=== PATIENT | male | born 1940 | race Caucasian/White ===

== ENCOUNTER 2019-08-26 22:39 | Emergency (ER) | payer OTHER ==
[~2019-08-26] VITALS: Ht 177.8 cm; Wt 81.6 kg
[~2019-08-26 22:39] MED LIST: AMIODARONE HCL200 MG PO; CARVEDILOL3.125 MG PO; ELIQUIS PO; ELOQUIS PO; FUROSEMIDE40 MG PO; LASIX20 MG PO
--- NOTE | 2019-08-26 23:05 | Emergency Department Note ---
History of Present Illnes History of Present Illness Chief Complaint: Eye, Ear, Nose, Throat, Dental History of Present Illness This is a 79 year old male with bleeding from R nare which started early this AM. Patient applied pressure to the area. Bleeding subsided prior to arrival. . 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 Any updates have been documented here. Past Medical History Recent Fever: No Clinical Suspicion of Infectio: No New/Unexplained Change in Ment: No Past Medical History: Hypertension Other Surgery: Squamos cell cancer Social History Smoking Cessation: Never Smoker Alcohol Use: None Any Illegal Drug Use: No Other Last Tetanus: UNKNOWN Review of Systems Review of Systems Constitutional: Reports no symptoms EENTM: Reports no symptoms Cardiovascular: Reports no symptoms Respiratory: Reports no symptoms Gastrointestinal: Reports no symptoms Genitourinary: Reports no symptoms Musculoskeletal: Reports no symptoms Integumentary: Reports no symptoms Neurological: Reports no symptoms Psychological: Reports no symptoms Endocrine: Reports no symptoms Hematological/Lymphatic: Reports easy bleeding Review of other systems All other systems reviewed and negative. Physical Exam Related Data Allergies: Coded Allergies: No Known Allergies (Unverified , 03/17/16) Physical Exam CONSTITUTIONAL Constitutional: Reports well-developed, Reports well-nourished HENT HENT: Reports normocephalic, Reports atraumatic, Reports oropharynx clear/moist , Reports nose normal, Reports other (dried heme in R nare . No active bleeding noted) HENT L/R: Reports left ext ear normal, Reports right ext ear normal EYES Eyes: Reports PERRL, Reports conjunctivae normal NECK Neck: Reports ROM normal PULMONARY Pulmonary: Reports effort normal, Reports breath sounds normal CARDIOVASCULAR Cardiovascular: Reports regular rhythm, Reports heart sounds normal, Reports capillary refill normal, Reports normal rate GASTROINTESTINAL Abdominal: Reports soft, Reports nontender, Reports bowel sounds normal GENITOURINARY Genitourinary: Reports exam deferred SKIN Skin: Reports warm, Reports dry MUSCULOSKELETAL Musculoskeletal: Reports ROM normal NEUROLOGICAL Neurological: Reports alert, Reports oriented x 3, Reports no gross motor or sensory deficits PSYCHOLOGICAL Psychological: Reports mood/affect normal, Reports judgement normal Procedures Epistaxis Control Nostril: right Nose prepped with: oxymetazoline Assessment & Plan Medical Decision Making MDM Patient presents with epistaxis of the R nare. hemostasis acheived prior to arrival. 1% Afrin spray applied to R nostril. Patient discharged to home to f/u with ENT as an outpatient. Assessment & Plan Final Impression: (1) Epistaxis Depart Disposition: HOME, SELF-[facility] living Meds Reported Medications Furosemide (LASIX) 20 Mg Tablet, 20 MG PO QD17, #30 TAB 03/17/16 Carvedilol (CARVEDILOL) 3.125 Mg Tablet, 6.25 MG PO BID, #60 TAB 03/17/16 [Eloquis] No Conflict Check, 5 MG PO BID 01/10/16 Furosemide (FUROSEMIDE) 40 Mg Tablet, 40 MG PO Daily, #30 TAB 01/10/16 Amiodarone Hcl (AMIODARONE HCL) 200 Mg Tablet, 200 MG PO DAILY 12/31/15 CARLOS PEREZ 10, 2020 23:05
[2019-08-26] MEDS ORDERED: OXYMETAZOLINE HCL 0.05% NAS 1 SPRAY BTL ONE (23:15)
[2019-08-27 00:22] VITALS: BP 116/92
== END 2019-08-27 00:26 | disposition home or self-care (01) ==
LOC: ER 22:39
DX: R04.0 Epistaxis (principal); I10 Essential (primary) hypertension; Z85.828 Personal history of other malignant neoplasm of skin
CPT/HCPCS: 99283

== ENCOUNTER 2019-09-01 04:02 | Emergency (ER) | payer OTHER ==
[~2019-09-01] VITALS: Ht 177.8 cm; Wt 77.1 kg
[2019-09-01] MEDS ORDERED: OXYMETAZOLINE HCL 0.05% NAS 1 SPRAY BTL ONE (04:30)
--- NOTE | 2019-09-01 04:40 | Emergency Department Note ---
History of Present Illnes History of Present Illness Chief Complaint: Eye, Ear, Nose, Throat, Dental History of Present Illness This is a 79 year old male nose bleeding that has been going on for since about 0200 this morning. Patient states this is about the 4th time he has bled intermittentl y. Patient bleeding from R nare at this time. Patient here recently for same problem and was told to follow up with EENT Dr. Brown. Patient has not followed up with Dr. Thompson. . Historian: Patient Arrival Mode: Car Onset (how long ago): hour(s) (2) Location: RIGHT NARE Quality: BLEEDING Radiation: Reports non-radiation Severity: mild Onset quality: sudden Duration (how long): hour(s) (2) Progression: waxing and waning Chronicity: recurrent Context: Denies recent illness, Denies recent surgery Relieving factors: none Exacerbating factors: none Associated symptoms: Reports denies other symptoms Past Medical/Family History Physician Review I have reviewed the patient's past medical and family history. Any updates have been documented here. Past Medical History Recent Fever: No Clinical Suspicion of Infectio: No New/Unexplained Change in Ment: No Past Medical History: Hypertension, COPD Other Medical History: SKIN CA Other Surgery: Squamos cell cancer Social History Smoking Cessation: Current every day smoker Counseling Performed: Yes Alcohol Use: None Any Illegal Drug Use: No TB Exposure/Symptoms: No Physically hurt or threatened: No Other Last Tetanus: UNKNOWN Any Pre-Existing Lines (PICC,: No Is patient up to date on immun: No Last Flu: NA Last Pneumovax: NA Review of Systems Review of Systems Constitutional: Reports no symptoms EENTM: Reports as per HPI Cardiovascular: Reports no symptoms Respiratory: Reports no symptoms Gastrointestinal: Reports no symptoms Genitourinary: Reports no symptoms Musculoskeletal: Reports no symptoms Integumentary: Reports no symptoms Neurological: Reports no symptoms Psychological: Reports no symptoms Endocrine: Reports no symptoms Hematological/Lymphatic: Reports no symptoms Physical Exam Related Data Allergies: Coded Allergies: No Known Allergies (Unverified , 03/17/16) Triage Vital Signs Vital Signs Date Time Temp Pulse Resp B/P (MAP) Pulse Ox O2 Delivery O2 Flow Rate FiO2 09/01/19 04:16 98.0 70 20 128/96 93 Vital signs reviewed: Yes Physical Exam CONSTITUTIONAL Constitutional: Present well-developed, Present well-nourished HENT HENT: Present normocephalic, Present atraumatic, Present oropharynx clear/moist, Present nose normal, Present other (MODERATE BLEEDING RIGHT ANTERIOR NARE, ) HENT L/R: Present left ext ear normal, Present right ext ear normal EYES Eyes: Reports PERRL, Reports conjunctivae normal NECK Neck: Present ROM normal PULMONARY Pulmonary: Present effort normal, Present breath sounds normal CARDIOVASCULAR Cardiovascular: Present regular rhythm, Present heart sounds normal, Present capillary refill normal, Present normal rate GASTROINTESTINAL Abdominal: Present soft, Present nontender, Present bowel sounds normal GENITOURINARY Genitourinary: Present exam deferred SKIN Skin: Present warm, Present dry MUSCULOSKELETAL Musculoskeletal: Present ROM normal NEUROLOGICAL Neurological: Present alert, Present oriented x 3, Present no gross motor or sensory deficits PSYCHOLOGICAL Psychological: Present mood/affect normal, Present judgement normal Procedures Epistaxis Control Nostril: right Direct inspection: anterior source identified Inspection method: otoscope Clots removed by: blowing nose Epistaxis treatment: inflatable pack Results of treatment: bleeding controlled Complications: none Assessment & Plan Medical Decision Making MDM Patient with intermittent epistaxis to right near for one week. Has not followed up with ENT. Clots were cleared by abrasion blow nose has anterior source of bleeding. Afrin nasal drops instilled pressure applied. Last Vital Signs Date Time Temp Pulse Resp B/P (MAP) Pulse Ox O2 Delivery O2 Flow Rate FiO2 09/01/19 04:16 98.0 70 20 128/96 93 Home Meds Reported Medications Furosemide (LASIX) 20 Mg Tablet, 20 MG PO QD17, #30 TAB 03/17/16 Carvedilol (CARVEDILOL) 3.125 Mg Tablet, 6.25 MG PO BID, #60 TAB 03/17/16 [Eloquis] No Conflict Check, 5 MG PO BID 01/10/16 Furosemide (FUROSEMIDE) 40 Mg Tablet, 40 MG PO Daily, #30 TAB 01/10/16 Amiodarone Hcl (AMIODARONE HCL) 200 Mg Tablet, 200 MG PO DAILY 12/31/15 Medications in the ED Oxymetazoline HCl ONCE ONCE NA Last administered on 09/01/19at 04:24; Admin Dose 2 SPRAY; Start 09/01/19 at 04:30; Stop 09/01/19 at 04:31; Status DC BREE MILES MD Sep 01, 2019 04:40
--- NOTE | 2019-09-01 05:13 | NUR ---
Krysten mckenzie placed by Dr. Rasmussen
== END 2019-09-01 06:02 | disposition home or self-care (01) ==
LOC: ER 04:02
DX: R04.0 Epistaxis (principal); I10 Essential (primary) hypertension; J44.9 Chronic obstructive pulmonary disease, unspecified; Z85.828 Personal history of other malignant neoplasm of skin; F17.210 Nicotine dependence, cigarettes, uncomplicated
CPT/HCPCS: 99282

== ENCOUNTER 2019-09-19 17:11 | Inpatient (IN) | payer OTHER ==
[~2019-09-19] VITALS: Ht 177.8 cm; Wt 76.8 kg
[2019-09-19] MEDS ORDERED: ALBUTEROL SULFATE HFA 8GM INHALATION AEROSOL INH PRN (17:45)
[2019-09-19] MEDS: CEFTRIAXONE SOD 1 GM/NS 50 ML 50 ML IV SCH (18:20)
--- NOTE | 2019-09-19 18:54 | Diagnostic Imaging Report ---
EXAMINATION: CHEST SINGLE (PORTABLE) INDICATION: ^Y ^COUGH, SOB, HYPOXIA ^[id number] ^[id number] COMPARISON: None FINDINGS: AP view TUBES and LINES: None. LUNGS: Lungs are well inflated. Diffuse bilateral lower lobe predominant reticular consolidations. PLEURA: No pleural effusion or pneumothorax. HEART AND MEDIASTINUM: The cardiac silhouette is mildly enlarged. BONES AND SOFT TISSUES: No acute osseous lesion. Soft tissues are unremarkable. UPPER ABDOMEN: No free air under the diaphragm. IMPRESSION: Radiographic findings consistent with pulmonary edema with or without superimposed viral pneumonia. Recommend follow-up chest radiograph after diuresis. Signed by: Dr. Priscilla Stern M.D. on 09/19/2019 6:50 PM
[2019-09-19 19:06] LABS: BASOPHILS % 0.4 % (0.0-1.0); EOSINOPHILS % 0.4 % (0.0-6.0); HEMATOCRIT 47.5 % (38.2-49.6); HEMOGLOBIN 14.9 g/dL (14.0-18.0); LYMPHOCYTES # (AUTO) 1.7 (1.0-3.2); LYMPHOCYTES % 16.8 % (18.0-39.1); MEAN CORPUSCULAR HEMOGLOBIN 29.3 pg (28-32); MEAN CORPUSCULAR HGB CONC 31.4 g/dL (31-35); MEAN CORPUSCULAR VOLUME 93.5 fL (81-99); MONOCYTES % 10.2 % (4.4-11.3); NEUTROPHILS # (AUTO) 7.1 (2.1-6.9); NEUTROPHILS % 71.8 % (38.7-80.0); PLATELET COUNT 235 x10e3/uL (140-360); RED BLOOD COUNT 5.08 x10e6/uL (4.3-5.7); RED CELL DISTRIBUTION WIDTH 16.5 % (11.7-14.4)
[2019-09-19 19:11] LABS: INR 1.81; PROTHROMBIN TIME 22.3 seconds (11.9-14.5)
[2019-09-19 19:12] LABS: PARTIAL THROMBOPLASTIN TIME 39.1 seconds (23.8-35.5)
[2019-09-19 19:18] LABS: ALANINE AMINOTRANSFERASE 23 IU/L (0-55); ALBUMIN 3.2 g/dL (3.5-5.0); ALBUMIN/GLOBULIN RATIO 1.1 (0.8-2.0); ALKALINE PHOSPHATASE 129 IU/L (40-150); ANION GAP 12.5 mmol/L (8-16); BLOOD UREA NITROGEN 23 mg/dL (7-26); BUN/CREATININE RATIO 21 (6-25); CALCIUM 8.8 mg/dL (8.4-10.2); CARBON DIOXIDE 27 mmol/L (22-29); CHLORIDE 105 mmol/L (98-107); CREATINE KINASE 40 IU/L (30-200); CREATININE, SERUM 1.11 mg/dL (0.72-1.25); EST GLOMERULAR FILTRATION RATE > 60 ML/MIN (60-); GLUCOSE 124 mg/dL (74-118); POTASSIUM 4.5 mmol/L (3.5-5.1); SODIUM 140 mmol/L (136-145)
--- NOTE | 2019-09-19 19:43 | Emergency Department Note ---
History of Present Illnes History of Present Illness Chief Complaint: Respiratory History of Present Illness This is a 79 year old male PATIENT IN FROM HOME WITH COMPLAINTS OF SHORTNESS OF BREATH X 5 DAYS; ALSO WITH COUGH. STATES THAT HE IS A CURRENT SMOKER, BUT THAT HE DOES NOT USE INHALERS OR NEBULIZERS OR HOME O2. PATIENT STATES HE HAS NOT BEEN ABLE TO SLEEP. O2 SATS 88% ON ROOM AIR, PLACED ON O2 2L/MIN NASAL CANNULA AND O2 SATS IMPROVED TO 92%. Historian: Patient Arrival Mode: Car Onset (how long ago): day(s) (5) Radiation: Reports non-radiation Severity: moderate Onset quality: gradual Timing of current episode: constant Progression: worsening Chronicity: new Context: Denies recent illness Relieving factors: none Exacerbating factors: none Associated symptoms: Reports cough, Reports shortness of breath, Reports other (ACHY ALL OVER) Treatments prior to arrival: none (NILESH CONWAY MD) Past Medical/Family History Physician Review I have reviewed the patient's past medical and family history. Any updates have been documented here. (NILESH CONWAY MD) Past Medical History Recent Fever: No Clinical Suspicion of Infectio: Yes New/Unexplained Change in Ment: No Past Medical History: Hypertension, Cancer Other Medical History: SKIN CA Other Surgery: Squamos cell cancer (NILESH CONWAY MD) Social History Physically hurt or threatened: No (NILESH CONWAY MD) Other Last Tetanus: UNKNOWN (NILESH CONWAY MD) Review of Systems Review of Systems Constitutional: Reports no symptoms EENTM: Reports no symptoms Cardiovascular: Reports no symptoms Respiratory: Reports as per HPI Gastrointestinal: Reports no symptoms Genitourinary: Reports no symptoms Musculoskeletal: Reports no symptoms Integumentary: Reports no symptoms Neurological: Reports no symptoms Psychological: Reports no symptoms Endocrine: Reports no symptoms Hematological/Lymphatic: Reports no symptoms (NILESH CONWAY MD) Physical Exam Related Data Allergies: Coded Allergies: No Known Allergies (Unverified , 03/17/16) Triage Vital Signs Vital Signs Date Time Temp Pulse Resp B/P (MAP) Pulse Ox O2 Delivery O2 Flow Rate FiO2 09/19/19 17:22 96.9 63 22 123/71 88 Room Air 09/19/19 17:30 2.0 Vital signs reviewed: Yes (NILESH CONWAY MD) Physical Exam CONSTITUTIONAL Constitutional: Present well-developed, Present well-nourished HENT HENT: Present normocephalic, Present atraumatic, Present oropharynx clear/moist, Present nose normal HENT L/R: Present left ext ear normal, Present right ext ear normal EYES Eyes: Reports PERRL, Reports conjunctivae normal NECK Neck: Present ROM normal PULMONARY Pulmonary: Present effort normal, Present respiratory distress (TACHYPNEA), Present other (DECR BS'S THROUGHOUT) CARDIOVASCULAR Cardiovascular: Present regular rhythm, Present heart sounds normal, Present capillary refill normal, Present normal rate GASTROINTESTINAL Abdominal: Present soft, Present nontender, Present bowel sounds normal GENITOURINARY Genitourinary: Present exam deferred SKIN Skin: Present warm, Present dry MUSCULOSKELETAL Musculoskeletal: Present ROM normal NEUROLOGICAL Neurological: Present alert, Present oriented x 3, Present no gross motor or sensory deficits PSYCHOLOGICAL Psychological: Present mood/affect normal, Present judgement normal (NILESH CONWAY MD) Results Laboratory Result Diagram: 09/19/19180909/19/19 1810 Laboratory Laboratory Tests Test 09/19/19 18:10 White Blood Count 9.82 x10e3/uL (4.8-10.8) Red Blood Count 5.08 x10e6/uL (4.3-5.7) Hemoglobin 14.9 g/dL (14.0-18.0) Hematocrit 47.5 % (38.2-49.6) Mean Corpuscular Volume 93.5 fL (81-99) Mean Corpuscular Hemoglobin 29.3 pg (28-32) Mean Corpuscular Hemoglobin Concent 31.4 g/dL (31-35) Red Cell Distribution Width 16.5 % (11.7-14.4) Platelet Count 235 x10e3/uL (140-360) Neutrophils (%) (Auto) 71.8 % (38.7-80.0) Lymphocytes (%) (Auto) 16.8 % (18.0-39.1) Monocytes (%) (Auto) 10.2 % (4.4-11.3) Eosinophils (%) (Auto) 0.4 % (0.0-6.0) Basophils (%) (Auto) 0.4 % (0.0-1.0) Neutrophils # (Auto) 7.1 (2.1-6.9) Lymphocytes # (Auto) 1.7 (1.0-3.2) Monocytes # (Auto) 1.0 (0.2-0.8) Eosinophils # (Auto) 0.0 (0.0-0.4) Basophils # (Auto) 0.0 (0.0-0.1) Absolute Immature Granulocyte (auto 0.04 x10e3/uL (0-0.1) Prothrombin Time 22.3 seconds (11.9-14.5) Prothromb Time International Ratio 1.81 Activated Partial Thromboplast Time 39.1 seconds (23.8-35.5) Sodium Level 140 mmol/L (136-145) Potassium Level 4.5 mmol/L (3.5-5.1) Chloride Level 105 mmol/L (98-107) Carbon Dioxide Level 27 mmol/L (22-29) Anion Gap 12.5 mmol/L (8-16) Blood Urea Nitrogen 23 mg/dL (7-26) Creatinine 1.11 mg/dL (0.72-1.25) Estimat Glomerular Filtration Rate > 60 ML/MIN (60-) BUN/Creatinine Ratio 21 (6-25) Glucose Level 124 mg/dL (74-118) Lactic Acid Level 1.3 mmol/L (0.5-2.0) Calcium Level 8.8 mg/dL (8.4-10.2) Total Bilirubin 1.2 mg/dL (0.2-1.2) Aspartate Amino Transf (AST/SGOT) 21 IU/L (5-34) Alanine Aminotransferase (ALT/SGPT) 23 IU/L (0-55) Alkaline Phosphatase 129 IU/L (40-150) Creatine Kinase 40 IU/L (30-200) Total Protein 6.1 g/dL (6.5-8.1) Albumin 3.2 g/dL (3.5-5.0) Globulin 2.9 g/dL (2.3-3.5) Albumin/Globulin Ratio 1.1 (0.8-2.0) Lab results reviewed: Yes (NILESH CONWAY MD) Imaging Imaging results reviewed: Yes Impressions EXAMINATION: CHEST SINGLE (PORTABLE) INDICATION: ^Y ^COUGH, SOB, HYPOXIA ^[id number] ^[id number] COMPARISON: None FINDINGS: AP view TUBES and LINES: None. LUNGS: Lungs are well inflated. Diffuse bilateral lower lobe predominant reticular consolidations. PLEURA: No pleural effusion or pneumothorax. HEART AND MEDIASTINUM: The cardiac silhouette is mildly enlarged. BONES AND SOFT TISSUES: No acute osseous lesion. Soft tissues are unremarkable. UPPER ABDOMEN: No free air under the diaphragm. IMPRESSION: Radiographic findings consistent with pulmonary edema with or without superimposed viral pneumonia. Recommend follow-up chest radiograph after diuresis. Signed by: Dr. Priscilla Stern M.D. on 09/19/2019 6:50 PM (NILESH CONWAY MD) Procedures 12 Lead ECG Interpretation ECG Interpretation : ECG: ECG 1 Electronics Research Engineer: Interpreted by ED physician Date: Sep 19, 2019 Time: 18:16 Rhythm: atrial fibrillation Rate: tachycardia (108) QRS axis: right Conduction: incomplete RBBB ST segments normal: Yes T waves normal: Yes Clinical Impression: abnormal ECG (NILESH CONWAY MD) Critical Care Time Total Critical Care Time (min): 45 Critical care time exclusive o: separately billable procedures Critcal care necessary due to: cardiac failure Subsequent provider Patient required pharmacological cardioversion in the setting of A. fib with RVR (BRANDON MONTALVO DO) Assessment & Plan Medical Decision Making MDM CBC, CHEM, CARDIACS, BNP, BLOOD CX'S, ECG, CXR, COVID - R/O STEMI/NSTEMI, CHF, COPD, PNEUMONIA, COVID (NILESH CONWAY MD) MDM Signout received, 79-year-old male arrives to the ED with cough shortness of breath, found to be in atrial fibrillation with rapid ventricular response. Patient required hospital admission for heart rate control and supplemental oxygen. (BRANDON MONTALVO DO) Reassessment Reassessment ADMIT, COVID SWAB PENDING (NILESH CONWAY MD) Assessment & Plan Final Impression: (1) Hypoxia (2) CHF (congestive heart failure) (NILESH CONWAY MD) Final Impression: (1) Hypoxia (2) CHF (congestive heart failure) (3) Atrial fibrillation with RVR (4) COVID-19 (BRANDON MONTALVO DO) Last Vital Signs Date Time Temp Pulse Resp B/P (MAP) Pulse Ox O2 Delivery O2 Flow Rate FiO2 09/19/19 17:31 88 24 93 09/19/19 17:30 2.0 09/19/19 17:22 96.9 Room Air (NILESH CONWAY MD) Home Meds Reported Medications Zinc Sulfate (ZINC SULFATE) 220 Mg Tablet, 220 MG PO DAILY, #60 CAP 09/23/19 Azithromycin (Z-NUBIA) 250 Mg Tablet, 250 MG PO DAILY for 7 Days, #1 UDPKT Z-Pack 09/23/19 Ascorbic Acid (VITAMIN C) 500 Mg Tablet, 500 MG PO BID, #60 09/23/19 [chertusin] No Conflict Check, 5 ML PO Q4HR PRN for COUGH 09/23/19 Dexamethasone (Decadron) 4 Mg Tablet, 4 MG PO DAILY, #7 09/23/19 Furosemide (LASIX) 20 Mg Tablet, 20 MG PO QD17, #30 TAB 03/17/16 Carvedilol (CARVEDILOL) 3.125 Mg Tablet, 6.25 MG PO BID, #60 TAB 03/17/16 [Eloquis] No Conflict Check, 5 MG PO BID 01/10/16 Furosemide (FUROSEMIDE) 40 Mg Tablet, 40 MG PO Daily, #30 TAB 01/10/16 Amiodarone Hcl (AMIODARONE HCL) 200 Mg Tablet, 200 MG PO DAILY 12/31/15 Medications in the ED Ceftriaxone Sodium 50 ml @ 100 mls/hr Q24H IV Last administered on 09/19/19at 18:20; Admin Dose 100 MLS/HR; Start 09/19/19 at 17:45; Stop 09/26/19 at 17:44 Azithromycin 250 ml @ 200 mls/hr DAILY IV ; Start 09/19/19 at 17:45; Stop 09/26/19 at 17:44 Albuterol 2 gm RQ2H PRN INH SHORTNESS OF BREATH; Start 09/19/19 at 17:45; Stop 10/19/19 at 17:44 (NILESH CONWAY MD) NILESH CONWAY MD Sep 19, 2019 19:43 BRANDON MONTALVO DO Sep 25, 2019 10:43
[2019-09-19 19:57] LABS: B-TYPE NATRIURETIC PEPTIDE2 346.5 pg/mL (0-100)
[2019-09-19] MEDS ORDERED: FUROSEMIDE INJ 10 MG/ML 4 ML VIAL IV ONE (22:00)
[2019-09-19] MEDS: AZITHROMYCIN 500MG/NS 250 ML 250 ML IV SCH (22:19)
[2019-09-20] MEDS ORDERED: FUROSEMIDE INJ 10 MG/ML 4 ML VIAL IV ONE (07:15)
--- NOTE | 2019-09-20 07:19 | NUR ---
CALLED LAB FOR UPDATE ON COVID SWAB, [facility] TEST[facility] WAS STOPPED AT 1400 YESTERDAY D/T HOLIDAY, BUT WILL BE LOADING RESULTS TODAY AND SHOULD BE BACK BY NOON.
--- NOTE | 2019-09-20 07:36 | NUR ---
PT GIVEN PHONE TO CALL , PT GIVEN BREAKFAST TRAY, PT UPDATED, PT BACK ON MONITORS AFTER BEING UPDATED BY [facility] AND GOING TO RESTROOM.
--- NOTE | 2019-09-20 08:04 | NUR ---
pt asked same questions as one hour ago. pt re educated on same information. states understanding at this time. pt awake, alert and is aaox4. pt slightly tachypnenic but denies distress, states "always sob." pt is current smoker.
--- NOTE | 2019-09-20 08:16 | NUR ---
AM LABS DRAWN AND SENT
[2019-09-20 08:55] LABS: BASOPHILS # (AUTO) 0.1 (0.0-0.1); BASOPHILS % 0.5 % (0.0-1.0); EOSINOPHILS % 0.4 % (0.0-6.0); HEMATOCRIT 47.9 % (38.2-49.6); HEMOGLOBIN 14.9 g/dL (14.0-18.0); LYMPHOCYTES # (AUTO) 2.1 (1.0-3.2); MEAN CORPUSCULAR HEMOGLOBIN 29.2 pg (28-32); MEAN CORPUSCULAR HGB CONC 31.1 g/dL (31-35); MEAN CORPUSCULAR VOLUME 93.9 fL (81-99); NEUTROPHILS # (AUTO) 6.8 (2.1-6.9); NEUTROPHILS % 67.7 % (38.7-80.0); PLATELET COUNT 243 x10e3/uL (140-360); RED CELL DISTRIBUTION WIDTH 16.6 % (11.7-14.4)
[2019-09-20 09:16] LABS: ALANINE AMINOTRANSFERASE 22 IU/L (0-55); ALBUMIN 3.3 g/dL (3.5-5.0); ALBUMIN/GLOBULIN RATIO 1.1 (0.8-2.0); ALKALINE PHOSPHATASE 126 IU/L (40-150); ANION GAP 12.3 mmol/L (8-16); BLOOD UREA NITROGEN 21 mg/dL (7-26); BUN/CREATININE RATIO 20 (6-25); CALCIUM 8.7 mg/dL (8.4-10.2); CARBON DIOXIDE 29 mmol/L (22-29); CHLORIDE 104 mmol/L (98-107); CREATINE KINASE 38 IU/L (30-200); CREATININE, SERUM 1.05 mg/dL (0.72-1.25); EST GLOMERULAR FILTRATION RATE > 60 ML/MIN (60-); GLUCOSE 110 mg/dL (74-118); POTASSIUM 4.3 mmol/L (3.5-5.1); SODIUM 141 mmol/L (136-145)
[2019-09-20] MEDS ORDERED: CARVEDILOL 12.5 MG TAB ONE (09:16)
[2019-09-20] MEDS ORDERED: AMIODARONE HCL 200 MG TAB ONE (09:16)
[2019-09-20] MEDS: CARVEDILOL 3.125 MG TAB PO SCH (09:26)
[2019-09-20] MEDS: AMIODARONE HCL 200 MG TAB PO SCH (09:26)
[2019-09-20] MEDS: APIXABAN 5 MG TABLET PO SCH ×2 (09:26→16:51)
[2019-09-20] MEDS: AZITHROMYCIN 500MG/NS 250 ML 250 ML IV SCH (09:26)
[2019-09-20] MEDS ORDERED: AMIODARONE HCL 200 MG TAB PO ONE (09:30)
[2019-09-20] MEDS ORDERED: SODIUM CHLORIDE 0.9% 250ML 250 ML ONE ×3 (11:02→16:48)
[2019-09-20] MEDS ORDERED: SODIUM CHLORIDE 0.9% 500ML 500 ML IV ONE (11:15)
[2019-09-20] MEDS ORDERED: VASOPRESSIN 60 UNIT in DEXTROSE 5% 50ML 60 ML IV STA (11:23)
--- NOTE | 2019-09-20 11:25 | Diagnostic Imaging Report ---
Examination: Single AP view of the chest. COMPARISON: Portable chest 09/19/2019 INDICATION: Shortness of breath, COVID IMPRESSION: Limited exam, as the costophrenic angles are not included in the image. 1. Lines and Tubes: None 2. Lungs are well-inflated. Patchy bibasilar predominantly interstitial opacities, which are essentially unchanged. No definite consolidation, however, exam is limited, as described above. 3. Stable enlarged cardiac silhouette. Pulmonary vasculature is normal. 4. No acute bony abnormalities. Signed by: Dr. Erasmo Fairchild M.D. on 09/20/2019 11:22 AM
--- NOTE | 2019-09-20 12:11 | NUR ---
pt placed on defib pads, 2nd monitor, increased o2 nc to 6 lpm, bilateral bp's modified fowlers, into gown, completely un-dressed with gown only incase central line placement needed stat, set up central line for md, informed md, watching pt one to one close obs.
--- NOTE | 2019-09-20 12:14 | NUR ---
remains in afib no ectopy
--- NOTE | 2019-09-20 12:19 | NUR ---
Note xin in ED - 09/20/19 at 1318 by MIKAYLA spoke with pt again. pt states living with son (pt is [place]) and pt states her oxygen is where she is going home to stay with son. pt insist she does have home oxygen.
--- NOTE | 2019-09-20 13:19 | NUR ---
CALLED LAB AGAIN, NOW THEY STATES SWAB WILL BE ANOTHER 24 HRS BEFORE BEING READY. SPOKE WITH [facility] BED AVAILABLE FOR ADMISSION.
[2019-09-20 16:09] VITALS: BP 121/79
[2019-09-20] MEDS: CEFTRIAXONE SOD 1 GM/NS 50 ML 50 ML IV SCH (16:51)
[2019-09-20] MEDS ORDERED: ZOLPIDEM TARTRATE 5 MG TAB PO PRN (17:00)
[2019-09-20] MEDS ORDERED: FUROSEMIDE INJ 10 MG/ML 4 ML VIAL IV SCH (17:00)
--- NOTE | 2019-09-20 17:00 | NUR ---
Received report on patient from ER at 1331 from [facility]. Patient arrived from ER at 1600. Patient is A0x3. Patient was connected to 3L o2. Patient ambulatory and able to give history and participate in assessment. Patient has 2 patent 20g IVs (Left AC and Right hand). Patient oriented to room, procedures, what to expect. Patient had no other questions or complaints.
--- NOTE | 2019-09-20 19:43 | NUR ---
Resumed care of patient. Patient awake and sitting up on side of bed, 2L O2 NC in place, no s/s of distress at this time. All safety measures in place. Will continue to monitor.
[2019-09-20 20:00] VITALS: BP 110/72
[2019-09-20 21:10] VITALS: BP 110/72
--- NOTE | 2019-09-20 21:42 | Consultation ---
DATE OF CONSULTATION: REASON FOR CONSULTATION: Hypoxemia, concerned about COVID. HISTORY OF PRESENT ILLNESS: This patient, who is a very pleasant 79-year-old white male with history of congestive heart failure, comes in from home with one-day history of shortness of breath, started last 5 days, getting progressively worse the last day. He came to the emergency room when he was hypoxemic. The patient was on oxygen. He was on 2 L, went up to 4 L, but he is currently doing very well and has no complaints. He denies any fever, chills, or cough, but he has shortness of breath. The patient was currently seen in the emergency room. LABORATORY DATA: All his lab reviewed, discussed with the ER physician at present time. His blood cultures still pending. His white count is 10.07, hemoglobin 14.9, hematocrit 47. His COVID-19 still pending. His sodium 140, potassium 4.5 with a creatinine of 1.11. Liver enzyme within normal limits. IMAGING: A chest x-ray was done. It shows patchy bibasilar predominant interstitial opacities. No definite consolidation. PHYSICAL EXAMINATION: GENERAL: Currently alert, oriented. Does not seem to be in acute distress. VITAL SIGNS: Stable. Currently afebrile. No fever since admission. Temperature 98.6. HEENT: He is not icteric. NECK: Supple. CHEST: Few crackles bilaterally. HEART: S1, S2. No S3, S4, or murmur. ABDOMEN: Soft. Bowel sounds present. No tenderness. EXTREMITIES: No edema. SKIN: There is no rash. IMPRESSION: Respiratory failure, concerned acute congestive heart failure, the possibility of superimposed viral bacterial pneumonia could not be ruled out, since we are in mid of COVID-19, continue with oxygen. We will continue on droplet precautions until we get the COVID-19 PCR. The patient is telling me he is already feeling better. He is on Eliquis, apixaban 5 mg p.o. b.i.d. He is on Coreg and amiodarone. Concerned about superimposed community-acquired pneumonia. He was on Rocephin, azithromycin. He is doing well with three days of azithromycin and 5 days of Rocephin. Continue with oxygenation as noted. PAST MEDICAL HISTORY: Congestive heart failure. PAST SURGICAL HISTORY: He denies. ALLERGIES: NKA. SOCIAL HISTORY: There is no smoking, drug abuse, or alcohol abuse. FAMILY HISTORY: Otherwise unremarkable. REVIEW OF SYSTEMS: At the present time besides as mentioned above, all negative. The course of during his hospitalization so far although reviewed. MD MILVIA Chamorro/ASHIA /[id number]
--- NOTE | 2019-09-20 23:28 | Consultation ---
DATE OF CONSULTATION: Pulmonary and Critical Care Consultation CHIEF COMPLAINT: Dyspnea. HISTORY OF PRESENT ILLNESS: The patient is an 79-year-old man. He has a history of prior smoking and some COPD, although he does not use inhalers or oxygen at home. He also has a history of atrial fibrillation and chronic diastolic heart failure. He has some baseline dyspnea on exertion, but his dyspnea has been worse over the past week. He went to the emergency department several days ago and received some azithromycin. He noted minimal improvement. States he still has some phlegm production. He does not complain of fevers or chest pain. PAST MEDICAL HISTORY: 1. Atrial fibrillation. 2. Intermittent heart failure. 3. COPD. ALLERGIES: NO KNOWN DRUG ALLERGIES. PAST SURGICAL HISTORY: Noncontributory. FAMILY HISTORY: Noncontributory. REVIEW OF SYSTEMS: The patient has no headache. He is not complaining of fevers. He has no neck pain. He denies chest pain. He does note worsening dyspnea. He has some cough and phlegm production. He has no abdominal pain. He has no nausea or vomiting. He has no leg edema. PHYSICAL EXAMINATION: VITAL SIGNS: The blood pressure is 121/79, heart rate is 101. The patient is afebrile. Saturating 97% on 3 L. HEENT: Shows no facial swelling or erythema. CARDIAC: Reveals regular rate and rhythm with normal S1 and S2. LUNGS: Auscultation of lungs reveals clear breath sounds bilaterally. There is no wheezing. ABDOMEN: Soft, nontender. There is no rebound or guarding. There is no leg edema or calf tenderness. NEUROLOGIC: Shows no abnormalities. LABORATORY DATA: White blood cell count is 10, hemoglobin is 14.9. The platelet count is 243. BUN to creatinine ratio is 21 to 1.07. Electrolytes are within normal limits. The BNP is 255.9. Total bilirubin is 1.4. Albumin is 3.4. RADIOGRAPHIC DATA: Chest x-ray shows patchy bibasilar opacities. IMPRESSION: 1. Qoync-vk-lbwghsy diastolic heart failure. 2. Paroxysmal atrial fibrillation. 3. Chronic obstructive pulmonary disease. 4. Possible viral pneumonia and coronavirus disease-2019. PLAN: 1. Continue azithromycin and Rocephin. 2. Albuterol inhaler as needed. 3. Continue amiodarone along with Eliquis and Coreg. 4. Low-dose Lasix. MD THAO Cruz /[id number]
[2019-09-21] VITALS (8 sets, daily range): BP systolic 91–124; BP diastolic 71–86
[2019-09-21 04:22] LABS: BASOPHILS % 0.4 % (0.0-1.0); EOSINOPHILS # (AUTO) 0.1 (0.0-0.4); EOSINOPHILS % 0.6 % (0.0-6.0); HEMATOCRIT 46.6 % (38.2-49.6); HEMOGLOBIN 14.6 g/dL (14.0-18.0); LYMPHOCYTES # (AUTO) 2.1 (1.0-3.2); LYMPHOCYTES % 21.4 % (18.0-39.1); MEAN CORPUSCULAR HEMOGLOBIN 29.6 pg (28-32); MEAN CORPUSCULAR HGB CONC 31.3 g/dL (31-35); MEAN CORPUSCULAR VOLUME 94.5 fL (81-99); MONOCYTES # (AUTO) 1.2 (0.2-0.8); MONOCYTES % 12.4 % (4.4-11.3); NEUTROPHILS # (AUTO) 6.3 (2.1-6.9); NEUTROPHILS % 64.8 % (38.7-80.0); PLATELET COUNT 200 x10e3/uL (140-360); RED BLOOD COUNT 4.93 x10e6/uL (4.3-5.7); RED CELL DISTRIBUTION WIDTH 16.3 % (11.7-14.4)
[2019-09-21 04:34] LABS: ALANINE AMINOTRANSFERASE 27 IU/L (0-55); ALBUMIN 3.1 g/dL (3.5-5.0); ALBUMIN/GLOBULIN RATIO 1.2 (0.8-2.0); ALKALINE PHOSPHATASE 117 IU/L (40-150); ANION GAP 12.3 mmol/L (8-16); BLOOD UREA NITROGEN 27 mg/dL (7-26); BUN/CREATININE RATIO 28 (6-25); CALCIUM 8.1 mg/dL (8.4-10.2); CARBON DIOXIDE 24 mmol/L (22-29); CHLORIDE 107 mmol/L (98-107); CREATININE, SERUM 0.97 mg/dL (0.72-1.25); EST GLOMERULAR FILTRATION RATE > 60 ML/MIN (60-); GLUCOSE 93 mg/dL (74-118); POTASSIUM 4.3 mmol/L (3.5-5.1); SODIUM 139 mmol/L (136-145)
--- NOTE | 2019-09-21 06:19 | NUR ---
Patient resting quietly in bed, respirations even and unlabored, 2L O2 NC in place, vital signs stable, no s/s of distress at this time. All safety measures in place.
[2019-09-21] MEDS: CARVEDILOL 3.125 MG TAB PO SCH ×2 (08:00→17:51)
[2019-09-21] MEDS ORDERED: ALBUTEROL SULFATE HFA 8GM INHALATION AEROSOL INH PRN (08:30)
--- NOTE | 2019-09-21 08:37 | Diagnostic Imaging Report ---
EXAMINATION: CHEST SINGLE (PORTABLE) INDICATION: Shortness of breath COMPARISON: Chest radiograph 09/20/2019 FINDINGS: LINES/TUBES:EKG leads overlie the chest. LUNGS:The lungs are mildly hyperinflated. Mildly increasing bibasilar hazy opacities. PLEURA:No pleural effusion or pneumothorax. MEDIASTINUM:Cardiomediastinal silhouette is stably enlarged. BONES/SOFT TISSUES:No acute osseous injury. ABDOMEN:No free air under the diaphragm. IMPRESSION: Mildly increasing bibasilar hazy opacities may represent pneumonia in the proper clinical setting. Signed by: Jacqueline Eastman MD on 09/21/2019 8:34 AM
[2019-09-21] MEDS ORDERED: DEXAMETHASONE SOD PHOS INJ 4 MG/ML VIAL IV SCH (09:00)
--- NOTE | 2019-09-21 09:00 | NUR ---
pt does not use oxygen at home. pt resting o2 at 2L- 91%. pt ambulating on room air- 85% pt recover on 2L- 90% then 95% after 5 min
--- NOTE | 2019-09-21 09:24 | History and Physical ---
PRIMARY CARE PHYSICIAN: Dr. Jordin Tucker. CONSULTANTS: 1. Dr. Candice Zaman. 2. Dr. Vito Marsh. CHIEF COMPLAINT: Increasing shortness of breath, cough. HISTORY OF PRESENT ILLNESS: The patient is an 79-year-old male with multiple chronic medical problems including COPD, diastolic dysfunction, and heart failure. The patient has also atrial fibrillation and amiodarone, on anticoagulant therapy. The patient came in with increasing shortness of breath first with exertion and then subsequently at rest. The patient came to the emergency room several days ago and he received azithromycin and subsequently went home. He has some improvement, but then worsened. The patient now came in with increasing shortness of breath. He was having difficulty breathing and chest x-ray showed bibasilar opacity consistent with most likely viral infection. The patient's COVID-19 PCR is still pending. PAST MEDICAL HISTORY: Atrial fibrillation, diastolic heart failure, and COPD. PAST SURGICAL HISTORY: Noncontributory. SOCIAL HISTORY: The patient does not smoke or use alcohol. No regular drug. ALLERGIES: NO KNOWN ALLERGIES. HOME MEDICATIONS: The patient is on amiodarone, Coreg, Lasix, and Eliquis. PHYSICAL EXAMINATION: VITAL SIGNS: Temperature is 97, blood pressure 123/71, pulse rate 63, and respirations 22. GENERAL: The patient is not in acute distress. He is awake. HEENT: Normocephalic and atraumatic. Pupils reactive. Anicteric. NECK: Supple grossly. PULMONARY: Diminished breath sounds bilaterally, coarses at the bases. CARDIOVASCULAR: Atrial fibrillation, increasing heart rate. ABDOMEN: Soft, nontender, non-distention. EXTREMITIES: No gross cyanosis or edema. NEUROLOGIC: No focal deficit. LABORATORY DATA: Serology PCR for COVID-19 pending. Chemistry; sodium 139, potassium 4.3, chloride 107, bicarb 24, BUN is 27, creatinine 0.9, and glucose is 93. WBC is 9.7, hemoglobin 14.6, hematocrit 46.6, and platelets of 200. Coagulation; INR is 1.8. Chest x-ray show lungs well inflated with patchy bibasilar predominant interstitial opacity. IMPRESSION: 1. Possible COVID-19, rule out pneumonitis/pneumonia. Bibasilar opacity. 2. Atrial fibrillation with rapid rate episodically. 3. Xzaay-ko-kffpslm diastolic dysfunction, congestive heart failure. 4. Acute respiratory insufficiency. PLAN: Oxygen support. Resume home medication and control heart rate. Antibiotics. COVID-19 protocol. Since the patient had increase in respiratory problem started few days ago now, the patient may benefit Decadron. We will start the patient on medication. Consult Dr. Vito Marsh, who saw the patient already. Consult Dr. Zaman. We will monitor the patient closely at this time. MD SAULO Wright/VAHIDL /[id number]
[2019-09-21] MEDS: AZITHROMYCIN 500MG/NS 250 ML 250 ML IV SCH (10:17)
[2019-09-21] MEDS: APIXABAN 5 MG TABLET PO SCH ×2 (10:17→17:52)
[2019-09-21] MEDS: AMIODARONE HCL 200 MG TAB PO SCH (10:17)
[2019-09-21] MEDS: ASCORBIC ACID 500 MG TAB PO SCH ×2 (11:22→17:52)
[2019-09-21] MEDS: DEXAMETHASONE PHOS 4MG/ML 5ML MULTIDOSE VIAL IV SCH (11:22)
[2019-09-21] MEDS: ZINC SULFATE 220 MG CAP PO SCH (11:22)
[2019-09-21] MEDS: MAGNESIUM OXIDE 400 MG TAB PO SCH ×2 (11:22→17:52)
--- NOTE | 2019-09-21 11:31 | Progress Note ---
DATE: SUBJECTIVE: The patient reports less dyspnea. He is not complaining of cough or chest pain. PHYSICAL EXAMINATION: VITAL SIGNS: The blood pressure is 106/80, saturation is 95% on 2 L and the pulse is 90. HEENT: Shows no facial swelling or erythema. CARDIAC: Reveals regular rate and rhythm with normal S1 and S2. LUNGS: Auscultation of lungs reveals decreased breath sounds at the bases. There is no wheezing. ABDOMEN: Soft and nontender. There is no rebound or guarding. EXTREMITIES: Shows no leg edema or calf tenderness. There is no cyanosis or clubbing. SKIN: Shows no rashes. NEUROLOGICAL: Shows no focal abnormalities. LABORATORY DATA: White blood cell count is 9.7, hemoglobin is 14.6, and platelet count is 200. BUN to creatinine ratio is normal. Other electrolytes are within normal limits. Albumin is 3.1. RADIOGRAPHIC DATA: Chest x-ray shows bilateral infiltrates. IMPRESSION: 1. Probable viral pneumonia and COVID-19 infection. 2. Paroxysmal atrial fibrillation. 3. Chronic diastolic heart failure. 4. Chronic obstructive pulmonary disease. PLAN: 1. Complete echocardiogram and Cardiology evaluation. 2. Continue current antibiotics. 3. Wean oxygen. 4. Bronchodilators as needed. Vito Marsh MD [facility]/VAHIDL /[id number]
--- NOTE | 2019-09-21 11:40 | NUR ---
nurse called to patient's room. pt sitting in chair on 4L nc very short of breath patient stating he cannot breathe. assessed tele monitor. patient hr 134 o2 sat 88%. patient placed on nonrebreather mask and rapid response called.
--- NOTE | 2019-09-21 13:33 | NUR ---
CALL TO SERGE LEWIS TO ASSESS IF HOME O2 ORDER NEEDED. STATES SHE WANTED TO ASSESS THE PT FIRST. AND SHE WOULD CALL DR. PEREZ FOR ORDER. CM WILL AWAIT ORDER OR CALL BACK.
--- NOTE | 2019-09-21 14:00 | NUR ---
patient doing much better this afternoon. notified Dr. Ortiz of hypotension and heart rate. order for CT entered. still pending covid results.
--- NOTE | 2019-09-21 16:52 | Diagnostic Imaging Report ---
EXAM: CT Chest WITHOUT intravenous contrast 09/21/2019 3:27 PM INDICATION: Shortness of breath COMPARISON: Chest radiograph 09/21/2019 TECHNIQUE: Chest was scanned utilizing a multidetector helical scanner from the lung apex through the level of the adrenal glands without administration of IV contrast. Coronal and sagittal reformations were obtained. Routine protocol was performed. IV CONTRAST: None RADIATION DOSE: Total DLP: 479 mGy*cm. Dose modulation, iterative reconstruction, and/or weight based adjustment of the mA/kV was utilized to reduce the radiation dose to as low as reasonably achievable. COMPLICATIONS: None FINDINGS: LINES/ TUBES: None. LUNGS AND AIRWAYS: There is mucus/debris in the distal trachea and in the right bronchus intermedius and its major branches. Increased AP diameter of the chest. Severe diffuse centrilobular and paraseptal emphysema. Diffuse bronchial wall thickening. Increased bilateral lower lobe predominant groundglass opacities and predominantly peripheral reticular opacities consistent with component of chronic pulmonary fibrosis. 2.9 x 2.6 cm spiculated posterior left lower lobe pulmonary nodule. PLEURA: The pleural spaces are clear. HEART AND MEDIASTINUM: The thyroid gland is normal. No supraclavicular or axillary lymphadenopathy. Numerous enlarged mediastinal lymph nodes, for example a pretracheal node which measures up to 2.7 x 2.3 cm (axial image 50) and a subcarinal node measuring up to 3.6 x 2.9 cm (axial image 66). Left hilar lymphadenopathy measures up to 2.1 x 1.5cm. Mild multichamber cardiomegaly. Small pericardial effusion. Scattered atherosclerotic calcifications involve the aorta, coronary arteries, and proximal great vessels. UPPER ABDOMEN: No acute findings in the upper abdomen. BONES: No acute osseous injury. SOFT TISSUES: Unremarkable. IMPRESSION: 2.9 x 2.6 cm spiculated left lower lobe pulmonary nodule is highly concerning for malignancy. Mediastinal and left hilar lymphadenopathy concerning for metastatic disease. Severe diffuse centrilobular and paraseptal emphysema. Findings of chronic pulmonary fibrosis. Mucous/debris in the distal trachea and right bronchus intermedius may be related to aspiration. Signed by: Jacqueline Eastman MD on 09/21/2019 4:49 PM
--- NOTE | 2019-09-21 17:07 | Progress Note ---
DATE: SUBJECTIVE: Mr. Campos had arrhythmia today. The patient currently alert and comfortable. He is not short of breath. OBJECTIVE: GENERAL: He is currently alert and oriented. VITAL SIGNS: Currently, afebrile. HEENT: He is not icteric. NECK: Supple. CHEST: Clear. ABDOMEN: Soft. Bowel sounds present. No tenderness. EXTREMITIES: No edema. LABORATORY DATA: His blood culture is still pending. His white count 9.72, and hemoglobin 14. IMPRESSION: 1. Shortness of breath, concerned about COVID-19. Continue as ordered. 2. Arrhythmia and congestive heart failure. Cardiology evaluation. 3. Chronic obstructive pulmonary disease, on oxygen. PLAN: Currently, on dexamethasone, magnesium oxide, zinc, Eliquis, azithromycin, Rocephin, and carvedilol. We will continue to follow and reassess on daily basis. Discussed with the Medical team. MD MILVIA Chamorro/ASHIA /[id number]
[2019-09-21] MEDS: CEFTRIAXONE SOD 1 GM/NS 50 ML 50 ML IV SCH (17:52)
--- NOTE | 2019-09-21 21:10 | NUR ---
Received pt in bed awake a/o x3 no s/sx of acute distress noted, denies pain or discomfort. States has a cough with no phlegm noted. Pt up to bathroom with O2sats decreasing, encouraged to call for assistance or use bedside urinal as able. Personal items within reach, bed in low and locked position, call barton at bedside. Will cont to mon.
[2019-09-22] VITALS (7 sets, daily range): BP systolic 80–116; BP diastolic 68–91
[2019-09-22] MEDS: ZINC SULFATE 220 MG CAP PO SCH (09:00)
[2019-09-22] MEDS: APIXABAN 5 MG TABLET PO SCH ×2 (09:39→16:30)
[2019-09-22] MEDS: MAGNESIUM OXIDE 400 MG TAB PO SCH ×2 (09:39→16:30)
[2019-09-22] MEDS: AMIODARONE HCL 200 MG TAB PO SCH (09:39)
[2019-09-22] MEDS: AZITHROMYCIN 500MG/NS 250 ML 250 ML IV SCH (09:39)
[2019-09-22] MEDS: CARVEDILOL 3.125 MG TAB PO SCH ×2 (09:39→16:24)
[2019-09-22] MEDS: ASCORBIC ACID 500 MG TAB PO SCH ×2 (09:39→16:30)
[2019-09-22] MEDS: DEXAMETHASONE PHOS 4MG/ML 5ML MULTIDOSE VIAL IV SCH (09:39)
--- NOTE | 2019-09-22 13:11 | Progress Note ---
DATE: Pulmonary Critical Care Progress Note SUBJECTIVE: CT scan shows possible right lower lobe mass measuring 2 x 3 cm. There is some associated mediastinal adenopathy. He also has emphysema. PHYSICAL EXAMINATION: VITAL SIGNS: The patient is afebrile. The blood pressure is 170/71, saturation is 97% on 4 L. HEENT: Shows no facial swelling or erythema. CARDIAC: Reveals regular rate and rhythm with normal S1 and S2. LUNGS: Auscultation of lungs shows clear breath sounds bilaterally. There is no wheezing. ABDOMEN: Soft and nontender. There is no rebound or guarding. EXTREMITIES: Shows no leg edema or calf tenderness. There is no cyanosis or clubbing. SKIN: Shows no rashes. NEUROLOGICAL: Shows no focal abnormalities. LABORATORY DATA: White blood cell count is 9.7, hemoglobin is 14.6. The platelet count is 200. The BUN to creatinine ratio is 27 to 0.97. The other electrolytes are within normal limits. RADIOGRAPHIC DATA: CT scan of the chest shows 2.9 x 2.6 cm spiculated left lower lobe pulmonary nodule. There is also some associated mediastinal adenopathy. IMPRESSION: 1. Left lower lobe mass, suggestive of possible bronchogenic carcinoma. 2. Probable viral pneumonia and COVID-19 infection. 3. Paroxysmal atrial fibrillation. 4. Chronic obstructive pulmonary disease. 5. Chronic diastolic heart failure. PLAN: 1. The patient understands the possibility of malignancy. He is interested in pursuing a biopsy, but wants to do so as an outpatient through his regular physician. 2. Continue oxygen and evaluate for home oxygen. 3. Complete current antibiotics. 4. Bronchodilators. Vito Marsh MD [facility]/MODL /[id number]
[2019-09-22] MEDS: CEFTRIAXONE SOD 1 GM/NS 50 ML 50 ML IV SCH (16:30)
[2019-09-22] MEDS ORDERED: GUAIFENESIN 200 MG/10 ML UDC PO PRN (22:30)
[2019-09-23] VITALS: BP 103/80
[2019-09-23 01:24] VITALS: BP 106/76
[2019-09-23 04:00] VITALS: BP 109/73
--- NOTE | 2019-09-23 04:24 | NUR ---
Pt request sleeping pill aprox 0100 Med per MAY, pt found to be confused but easily redirected. Took tele monitor off and lost dentures in bed. Pt also removed O2nc. Items replaced to pt and tele monitor removed again. Bed alarm set on bed for patient safety, instructed pt to call for assistance if need to get oob. Pt apologize for conrfusion. Reassured pt his safety is of concern and his care. Pt attempt to get oob and to bathroom, assisted by staff without dif. Assisted back to bed, alarm on, bed in low position, call barton and personal items within reach will closely mon patient.
[2019-09-23 08:42] VITALS: BP 108/81
[2019-09-23] MEDS: CARVEDILOL 3.125 MG TAB PO SCH (09:04)
[2019-09-23] MEDS: AZITHROMYCIN 500MG/NS 250 ML 250 ML IV SCH (09:04)
[2019-09-23] MEDS: AMIODARONE HCL 200 MG TAB PO SCH (09:04)
[2019-09-23] MEDS: MAGNESIUM OXIDE 400 MG TAB PO SCH (09:04)
[2019-09-23] MEDS: DEXAMETHASONE PHOS 4MG/ML 5ML MULTIDOSE VIAL IV SCH (09:04)
[2019-09-23] MEDS: ASCORBIC ACID 500 MG TAB PO SCH (09:04)
[2019-09-23] MEDS: APIXABAN 5 MG TABLET PO SCH (09:04)
--- NOTE | 2019-09-23 09:50 | NUR ---
SPO2 on Room air 86%. Placed patient on NC 3L and exerted patient. SPO2 94% upon exertion with O2 3L NC.
[2019-09-23 09:54] VITALS: BP 108/81
[2019-09-23] MEDS ORDERED: DECADRON4 M1 PO (10:39)
[2019-09-23] MEDS ORDERED: [UNRECOGNIZED DRUG - OTHER] PO (10:41)
[2019-09-23] MEDS ORDERED: AZITHROMYCIN250 MG PO (10:42)
[2019-09-23] MEDS ORDERED: VITAMIN C500 M1 PO (10:42)
[2019-09-23] MEDS ORDERED: ZINC SULFATE220 MG PO (10:42)
[2019-09-23] MEDS: ZINC SULFATE 220 MG CAP PO SCH (11:30)
--- NOTE | 2019-09-23 11:30 | NUR ---
CALL TO PT @ [phone]. PT'S ; BOB STORM ANSWERED. STATES THIS WAS THEIR HOME #. STATES SHE WOULD BE CARING FOR THE PT AT HOME. STATES HE CAN MAKE HIS OWN DECISIONS. INFORMED I WILL CALL PT AFTER OUR CALL. SHE WILL CALL ALSO. DISCUSSED HOME O2. PROVIDED CHOICE. CHOSE [facility] @ [facility]: [phone] / FAX: [phone]. REFERRAL WAS FAXED TO [facility]. TOMMY NEWMAN/ NOTIFIED. TANK WAS TAKEN TO THE UNIT FOR DC HOME. INSTRUCTED RAYMOND TO INFORM PT I SPOKE W HIS AND HE WOULD NEED TO CALL THE # ON THE TANK AT [place]. WAS ALSO INSTRUCTED TO CALL AT DISCHARGE.
[2019-09-23 12:25] VITALS: BP 101/61
--- NOTE | 2019-09-23 12:26 | Progress Note ---
DATE: SUBJECTIVE: The patient has no new complaints. He did have some tachycardia this morning. He is saturating well on oxygen. PHYSICAL EXAMINATION: VITAL SIGNS: The patient is afebrile. The vital signs are stable. Saturating 99% on 4 L. His heart rate has fluctuated between 96 and 134. HEENT: Shows no facial swelling or erythema. CARDIAC: Reveals irregularly irregular rhythm with normal S1 and S2. LUNGS: Auscultation of lungs reveals crackles at the bases. There is no wheezing. ABDOMEN: Soft and nontender. There is no rebound or guarding. EXTREMITIES: Shows no leg edema or calf tenderness. There is no cyanosis or clubbing. SKIN: Shows no rashes. IMPRESSION: 1. 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 2. Paroxysmal atrial fibrillation. 3. Viral pneumonia and COVID-19 infection. 4. Chronic diastolic heart failure. 5. Chronic obstructive pulmonary disease. PLAN: 1. The patient wants to go home. He will pursue a CT-guided biopsy as an outpatient through his regular physician at [facility]. 2. Continue oxygen at home. 3. Complete antibiotics. 4. Continue current cardiac regimen. 5. Okay with Cardiology prior to discharge. MD MARA Cruz/ASHIA /[id number]
--- NOTE | 2019-09-23 13:18 | NUR ---
L AC and right hand IV discontinued. No signs of infiltration noted. 2x2 gauze and tape placed. Taken via wheelchair to personal car by PCT Ilsa. AAOX3 to time, person, place. Respirations even and unlabored. O2 personal tank 3L NC. Discharge instructions, rx, and all personal belongings taken with patient.
[2019-09-24] MEDS ORDERED: AZITHROMYCIN 250 MG TAB PO SCH (09:00)
== END 2019-09-23 13:18 | disposition home or self-care (01) | DRG 177 ==
LOC: ER 17:44 → ERHOLD 09-20 13:19 → IMCU 09-20 15:31 → OBSVTOIN 09-21 08:46
PROVIDERS: ADMIT Internal Medicine; ATTEND Internal Medicine
DX: U07.1 COVID-19 (principal); J96.91 Respiratory failure, unspecified with hypoxia; J12.89 Other viral pneumonia; I50.33 Acute on chronic diastolic (congestive) heart failure; C34.32 Malignant neoplasm of lower lobe, left bronchus or lung; F17.210 Nicotine dependence, cigarettes, uncomplicated; Z85.828 Personal history of other malignant neoplasm of skin; J44.9 Chronic obstructive pulmonary disease, unspecified; I48.0 Paroxysmal atrial fibrillation; R59.0 Localized enlarged lymph nodes
CPT/HCPCS: 36415; 71045; 71250; 80053; 82550; 82553; 83605; 83880; 84484; 85025; 85610; 85730; 87040; 87635; 93005; 93306; 99285; G0378; J0456; J0696; J1940; J7050

== ENCOUNTER 2019-10-25 23:24 | Observation (INO) | payer MEDICARE, OTHER ==
[~2019-10-25] VITALS: Ht 170.2 cm; Wt 76.7 kg
[~2019-10-25 23:24] MED LIST changes: +AZITHROMYCIN250 MG PO; +DECADRON4 M1 PO; +VITAMIN C500 M1 PO; +ZINC SULFATE220 MG PO; +[UNRECOGNIZED DRUG - OTHER] PO
[2019-10-25 23:59] LABS: BASOPHILS % 0.3 % (0.0-1.0); EOSINOPHILS # (AUTO) 0.1 (0.0-0.4); EOSINOPHILS % 1.2 % (0.0-6.0); HEMATOCRIT 47.7 % (38.2-49.6); HEMOGLOBIN 15.4 g/dL (14.0-18.0); LYMPHOCYTES # (AUTO) 2.5 (1.0-3.2); LYMPHOCYTES % 28.4 % (18.0-39.1); MEAN CORPUSCULAR HGB CONC 32.3 g/dL (31-35); MONOCYTES # (AUTO) 1.1 (0.2-0.8); MONOCYTES % 12.5 % (4.4-11.3); NEUTROPHILS # (AUTO) 4.9 (2.1-6.9); NEUTROPHILS % 56.8 % (38.7-80.0); PLATELET COUNT 222 x10e3/uL (140-360); RED BLOOD COUNT 5.13 x10e6/uL (4.3-5.7); RED CELL DISTRIBUTION WIDTH 16.8 % (11.7-14.4)
[2019-10-26] VITALS (9 sets, daily range): BP systolic 103–142; BP diastolic 72–99
[2019-10-26 00:11] LABS: INR 1.46; PROTHROMBIN TIME 18.6 seconds (11.9-14.5)
--- NOTE | 2019-10-26 00:14 | Emergency Department Note ---
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 Historian: Patient Arrival Mode: Car Onset (how long ago): day(s) (2) Location: CHEST Quality: SOB Radiation: Reports non-radiation Severity: moderate Onset quality: gradual Duration (how long): day(s) (2) Timing of current episode: constant Progression: worsening Chronicity: chronic Context: Denies recent illness, Denies recent surgery, Denies trauma/injury Relieving factors: other (SITTING UP) Exacerbating factors: other (LYING DOWN) Treatments prior to arrival: none Past Medical/Family History Physician Review I have reviewed the patient's past medical and family history. Any updates have been documented here. Past Medical History Recent Fever: No Clinical Suspicion of Infectio: No New/Unexplained Change in Ment: No Past Medical History: Hypertension, COPD, CHF, A-Fib, Cancer Other Medical History: SKIN CA Past Surgical History: None Other Surgery: SKIN CA REMOVAL LT KNEE SX RT WRIST SX Social History Smoking Cessation: Current every day smoker Alcohol Use: Social Any Illegal Drug Use: No Physically hurt or threatened: No Other Last Tetanus: UNKNOWN Any Pre-Existing Lines (PICC,: No Review of Systems Review of Systems Constitutional: Reports no symptoms EENTM: Reports no symptoms Cardiovascular: Reports no symptoms Respiratory: Reports as per HPI Gastrointestinal: Reports no symptoms Genitourinary: Reports no symptoms Musculoskeletal: Reports no symptoms Integumentary: Reports no symptoms Neurological: Reports no symptoms Psychological: Reports no symptoms Endocrine: Reports no symptoms Hematological/Lymphatic: Reports no symptoms Physical Exam Related Data Allergies: Coded Allergies: No Known Allergies (Unverified , 03/17/16) Triage Vital Signs Vital Signs Date Time Temp Pulse Resp B/P (MAP) Pulse Ox O2 Delivery O2 Flow Rate FiO2 10/25/19 23:24 97.6 115 20 136/93 95 Room Air Vital signs reviewed: Yes Physical Exam CONSTITUTIONAL Constitutional: Present well-developed, Present well-nourished; Absent distressed HENT HENT: Present normocephalic, Present atraumatic, Present oropharynx clear/moist, Present nose normal HENT L/R: Present left ext ear normal, Present right ext ear normal EYES Eyes: Reports PERRL, Reports conjunctivae normal NECK Neck: Present ROM normal PULMONARY Pulmonary: Present effort normal, Present other (DECREASED AT BASES BILATERAL, NO WHEEZING, NO RALES NOTED) CARDIOVASCULAR Cardiovascular: Present regular rhythm, Present irregular rhythm (103), Present heart sounds normal, Present capillary refill normal, Present tachycardia GASTROINTESTINAL Abdominal: Present soft, Present nontender, Present bowel sounds normal GENITOURINARY Genitourinary: Present exam deferred SKIN Skin: Present warm, Present dry MUSCULOSKELETAL Musculoskeletal: Present ROM normal NEUROLOGICAL Neurological: Present alert, Present oriented x 3, Present no gross motor or sensory deficits PSYCHOLOGICAL Psychological: Present mood/affect normal, Present judgement normal Results Laboratory Result Diagram: 10/25/19 2340 Laboratory Laboratory Tests Test 10/25/19 23:40 White Blood Count 8.62 x10e3/uL (4.8-10.8) Red Blood Count 5.13 x10e6/uL (4.3-5.7) Hemoglobin 15.4 g/dL (14.0-18.0) Hematocrit 47.7 % (38.2-49.6) Mean Corpuscular Volume 93.0 fL (81-99) Mean Corpuscular Hemoglobin 30.0 pg (28-32) Mean Corpuscular Hemoglobin Concent 32.3 g/dL (31-35) Red Cell Distribution Width 16.8 % (11.7-14.4) Platelet Count 222 x10e3/uL (140-360) Neutrophils (%) (Auto) 56.8 % (38.7-80.0) Lymphocytes (%) (Auto) 28.4 % (18.0-39.1) Monocytes (%) (Auto) 12.5 % (4.4-11.3) Eosinophils (%) (Auto) 1.2 % (0.0-6.0) Basophils (%) (Auto) 0.3 % (0.0-1.0) Neutrophils # (Auto) 4.9 (2.1-6.9) Lymphocytes # (Auto) 2.5 (1.0-3.2) Monocytes # (Auto) 1.1 (0.2-0.8) Eosinophils # (Auto) 0.1 (0.0-0.4) Basophils # (Auto) 0.0 (0.0-0.1) Absolute Immature Granulocyte (auto 0.07 x10e3/uL (0-0.1) Lab results reviewed: Yes Imaging Imaging results reviewed: Yes Procedures 12 Lead ECG Interpretation ECG Interpretation : ECG: ECG 1 Child Protection Specialist: Interpreted by ED physician Date: Oct 25, 2019 Time: 23:31 Rhythm: atrial fibrillation Rate: tachycardia BPM: 103 QRS axis: right ST segments normal: No (NON SPECIFIC CHANGES) T waves normal: No (NON SPECIFIC CHANGES) Q waves: V1, V2 Clinical Impression: dysrhythmia - atrial (AFIB WITH RVR) Assessment & Plan Medical Decision Making [facility] PT WITH H/O COPD AND CHF WITH SOB CBC, CMP, CARDIAC ENZYMES, EKG, CXR, BNP, ORDERED TO EVAL FOR MYOCARDIAL INFARCTION, ELECTROLYTE ABNORMALITY, PULMONARY EDEMA, PNEUMONIA, CHF 0030 WALKED PT DOWN [place] BECAME VERY SOB WITH EXERTION I SPOKE WITH DR PEREZ AND DR Erma SANDERS Assessment & Plan Final Impression: (1) Chronic a-fib (2) COPD (chronic obstructive pulmonary disease) (3) SOB (shortness of breath) Depart Disposition: ADMITTED Last Vital Signs Date Time Temp Pulse Resp B/P (MAP) Pulse Ox O2 Delivery O2 Flow Rate FiO2 10/25/19 23:49 105 20 110/78 93 Room Air 10/25/19 23:24 97.6 Home Meds Reported Medications Zinc Sulfate (ZINC SULFATE) 220 Mg Tablet, 220 MG PO DAILY, #60 CAP 09/23/19 Azithromycin (Z-NUBIA) 250 Mg Tablet, 250 MG PO DAILY for 7 Days, #1 UDPKT Z-Pack 09/23/19 Ascorbic Acid (VITAMIN C) 500 Mg Tablet, 500 MG PO BID, #60 09/23/19 [chertusin] No Conflict Check, 5 ML PO Q4HR PRN for COUGH 09/23/19 Dexamethasone (Decadron) 4 Mg Tablet, 4 MG PO DAILY, #7 09/23/19 Furosemide (LASIX) 20 Mg Tablet, 20 MG PO QD17, #30 TAB 03/17/16 Carvedilol (CARVEDILOL) 3.125 Mg Tablet, 6.25 MG PO BID, #60 TAB 03/17/16 [Eloquis] No Conflict Check, 5 MG PO BID 01/10/16 Furosemide (FUROSEMIDE) 40 Mg Tablet, 40 MG PO Daily, #30 TAB 01/10/16 Amiodarone Hcl (AMIODARONE HCL) 200 Mg Tablet, 200 MG PO DAILY 12/31/15 BREE MILES MD Oct 26, 2019 00:14
[2019-10-26 00:20] LABS: ALANINE AMINOTRANSFERASE 21 IU/L (0-55); ALBUMIN 3.3 g/dL (3.5-5.0); ALBUMIN/GLOBULIN RATIO 1.2 (0.8-2.0); ALKALINE PHOSPHATASE 101 IU/L (40-150); BLOOD UREA NITROGEN 24 mg/dL (7-26); BUN/CREATININE RATIO 22 (6-25); CALCIUM 9.1 mg/dL (8.4-10.2); CARBON DIOXIDE 24 mmol/L (22-29); CHLORIDE 106 mmol/L (98-107); CREATININE, SERUM 1.07 mg/dL (0.72-1.25); EST GLOMERULAR FILTRATION RATE > 60 ML/MIN (60-); GLUCOSE 75 mg/dL (74-118); SODIUM 139 mmol/L (136-145)
[2019-10-26 00:43] LABS: CREATINE KINASE < 70 IU/L (30-200)
--- NOTE | 2019-10-26 01:18 | Diagnostic Imaging Report ---
EXAMINATION: CHEST SINGLE (PORTABLE) INDICATION: ^Y ^SOB WITH H/O COPD AND CHF ^Y COMPARISON: CT dated 09/21/2019. Chest x-ray dated 09/21/2019. FINDINGS: Heart is enlarged. Upper lobe pulmonary vessels are distinct. Unchanged hazy and reticular opacities of the lung bases. Similar bilateral lymphadenopathy as seen on prior chest CT. Left basilar mass seen on prior CT is not apparent radiographically. No pleural effusion. No pneumothorax. IMPRESSION: 1. No significant change from prior radiograph. Increased interstitial opacities in the mid lower lungs likely represents superimposed soft tissue and superimposed on severe emphysematous changes. No pleural effusions is suggested edema. Superimposed infection would be difficult to exclude. 2. Known left basilar mass with mediastinal and hilar lymphadenopathy as seen on prior CT. If not already evaluated, soft tissue sampling and oncologic referral is recommended. Signed by: Sanjiv Cerda MD on 10/26/2019 1:15 AM
--- OUTSIDE RECORDS SUMMARY | 2019-10-26 01:24 | XMS REPORT | Continuity of Care Document ---
Author Author [facility] t Organization [facility] Address [address] [place] [address] Phone Unavailable Care Team Providers Care Retail Services Professional Name Role Phone Saúl CUNNINGHAM PCP Erma MILES Attphys Unavailable PEREZ, CINDY Attphys Unavailable PEREZ, CINDY Admphys Unavailable Payers Payer Name Policy Type Policy Number Effective Date Expiration Date Arcadio Glover [id number] 2019 00:00:00 [facility] Cdc Review Covid19 [id number] [facility] Problems Condition Name Condition Details Condition Category Status Onset Date Resolution Date Last Treatment Date Treating Clinician Comments Source Congestive heart failure Problem Active [facility] Epistaxis Problem Active [facility] Hypoxia Problem Active [facility] Allergies, Adverse Reactions, Alerts This patient has no known allergies or adverse reactions. Social History Social Habit Start Date Stop Date Quantity Comments Source Sex Assigned At 1940 00:00:00 1940 00:00:00 Male [facility] Medications Ordered Medication Name Filled Medication Name Start Date Stop Da te Current Medication? Ordering Clinician Indication Dosage Frequency Signature (SIG) Comments Components Source Amiodarone Hcl Amiodarone Hcl Yes 200 Daily [facility] Ascorbic Acid (Vitamin C) 500 Mg TABLET Ascorbic Acid (Vitam in C) 500 Mg TABLET Yes 500 Twice A Day [facility] Azithromycin (Z-Jt) 250 Mg TABLET Azithromycin (Z-Jt) 250 Mg TABLET Yes 250 Daily [facility] Carvedilol Carvedilol Yes 6.25 Twice A Day [facility] Chertusin Chertusin Yes 5 Every 4 Hours as nee ded for Cough [facility] Dexamethasone (Decadron) 4 Mg TABLET Dexamethasone (Decadron) 4 Mg TABLET Yes 4 Daily [facility] Eloquis Eloquis Yes 5 Twice A Day [facility] Furosemide (Lasix) 20 Mg TABLET Furosemide (Lasix) 20 Mg TABLET Yes 20 Daily At 1700 [facility] Furosemide Furosemide Yes 40 Daily [facility] Zinc Sulfate Zinc Sulfate Yes 220 Daily [facility] Eliquis Eliquis 2016-01-10 00:00:00 No 5 Daily [facility] Vital Signs Vital Name Observation Time Observation Value Comments Source Body Temperature 2019-09-23 12:25:00 97.4 [degF] [facility] Weight 2019-09-23 02:27:00 169.31 [lb_av] [facility] BMI (Body Mass Index) 2019-09-23 02:27:00 24.3 kg/m2 [facility] Weight 2019-09-19 17:22:00 170 [lb_av] [facility] BMI (Body Mass Index) 2019-09-19 17:22:00 24.4 kg/m2 [facility] Weight 2019-09-01 04:16:00 170 [lb_av] [facility] BMI (Body Mass Index) 2019-09-01 04:16:00 24.4 kg/m2 [facility] Weight 2019-08-26 23:04:00 180 [lb_av] [facility] BMI (Body Mass Index) 2019-08-26 23:04:00 25.8 kg/m2 [facility] Procedures Procedure Date / Time Performed Performing Clinician [facility] e Computed tomography of chest without contrast 2019-09-21 00:00:0 0 [facility] EMERGENCY DEPT VISIT 2019-08-26 00:00:00 [facility] Plan of Care Planned Activity Planned Date Details Comments Source Instructions COVID-19: 06/01/2019 [facility] Instructions Congestive Heart Failure [facility] Instructions Heart Healthy Diet [facility] Instructions Infection Control [facility] Encounters Start Date/Time End Date/Time Encounter Type Admission Type [facility] Care Department Encounter ID Source 2019-09-21 08:46:00 2019-09-23 13:18:00 Discharged Inpatient 1 CINDY PEREZ [facility] [id number] [facility] 2019-09-01 04:02:00 2019-09-01 06:02:00 Departed Emergency Room [facility] [id number] [facility] 2019-08-26 22:39:00 2019-08-27 00:26:00 Departed Emergency Room [facility] [id number] [facility] Results Test Description Test Time Test Comments Results Result Comments Source CHEST SINGLE (PORTABLE) 2019-10-26 01:01:00 [facility] [address] [place] [address] Patient Name: NAWAF STORM MR #: [id number] : 1940 Age/Sex: 79/M Req #: [id number] Adm Physician: Ordered by: BREE MILES MD Report #: [id number] Location: ER Room/Bed: Procedure: [id number] DX/CHEST SINGLE (PORTABLE) Exam Date: Exam Time: REPORT STATUS: Signed EXAMINATION: CHEST SINGLE (PORTABLE) INDICATION: Y SOB WITH H/O COPD AND CHF Y COMPARISON: CT dated 09/21/2019. Chest x-ray dated 09/21/2019. FINDINGS: Heart is enlarged. Upper lobe pulmonary vessels are distinct. Unchanged hazy and reticular opacities of the lung bases. Similar bilateral lymphadenopathy as seen on prior chest CT. Left basilar mass seen on prior CT is not apparent radiographically. No pleural effusion. No pneumothorax. IMPRESSION: 1. No significant change from prior radiograph. Increased interstitial opacities in the mid lower lungs likely represents superimposed soft tissue and superimposed on severe emphysematous changes. No pleural effusions is suggested edema. Superimposed infection would be difficult to exclude. 2. Known left basilar mass with mediastinal and hilar lymphadenopathy as seen on prior CT. If not already evaluated, soft tissue sampling and oncologic referral is recommended. Signed by: Cindy Jaquez MD on 10/26/2019 1:15 AM Dictated By: CINDY JAQUEZ MD 4 Transcribed By: IMELDA on 10/26/19114 COPY TO: BREE MILES MD Fluoroscopic procedure less than one hour duration 11:52:00 Test Item Coronavirus (PCR) (test code = Coronavirus (PCR)) DETECTED NOTD ETECTED SARS-COV2/RT-PCRResults are for the detection of SARS-COV-2 RNA. The SARS-COV-2 RNA is generally detectable in nasopharyngeal swab specimens during the acute ph ase of infection. Positive results are indicitive of active infection with SARS- COV-2; clinical correlation with patient history and other diagnostic informatio n is necessary to determine patient infection status. Positive results do not ru le out bacterial infection or co-infection with other viruses. The agent detecte d may not be the definite cause of the disease.The limit of detection for this a ssay is 250 copies/mLThe SARS-CoV-2 test is a rapid, real-time RT-PCR test inten ded for the qualitative detection of nucleic acid from SARS-CoV-2 in nasopharyng eal swab specimen collected from individuals suspected of COVID-[address] [facility] provider. This test has not been Food and Drug Administration (FDA) clear ed or approved and has been authorized by FDA under an Emergency Use Authorizati on (EUA). This EUA will be effective until the declaration that circumstances ex ist justifying the authorization of the emergency use of in vitro diagnostic ladi t for detection and or diagnosis of COVID-19 is terminated under section 564(b) of the Act, or the the EUA is revoked under 564(g) of the ACT.Testing performed [address] CHE[address] [id number] 16:38:00 [facility] [address] [address] Patient Name: NAWAF STORM MR #: [id number] : 1940 Age/Sex: 79/M Req #: [id number] Adm Physician: CINDY PEREZ MD Ordered by: CINDY PEREZ MD Report #: [id number] Location: [facility] Room/Bed: [place] [address] Procedure: [id number] CT/CT CHEST WO Exam Date: 09/21/19 Exam Time: 1527 REPORT STATUS: Signed EXAM: CT Chest WITHOUT intr avenous contrast 09/21/2019 3:27 PM INDICATION: Shortness of breath COMPARISO N: Chest radiograph 09/21/2019 TECHNIQUE: Chest was scanned utilizing a multid etector helical scanner from the lung apex through the level of the adrenal gl ands without administration of IV contrast. Coronal and sagittal reformations were obtained. Routine protocol was performed. IV CONTRAST: None RADIAT ION DOSE: Total DLP: 479 mGy*cm. Dose modulation, iterative reconstruction, an d/or weight based adjustment of the mA/kV was utilized to reduce the radiation dose to as low as reasonably achievable. COMPLICATIONS: None FINDINGS: LINES/ TUBES: None. LUNGS AND AIRWAYS: There is mucus/debris in the d istal trachea and in the right bronchus intermedius and its major branches. In creased AP diameter of the chest. Severe diffuse centrilobular and paraseptal emphysema. Diffuse bronchial wall thickening. Increased bilateral lower lobe p redominant groundglass opacities and predominantly peripheral reticular opacit ies consistent with component of chronic pulmonary fibrosis. 2.9 x 2.6 cm spi culated posterior left lower lobe pulmonary nodule. PLEURA: The pleural s paces are clear. HEART AND MEDIASTINUM: The thyroid gland is normal. No sorensen praclavicular or axillary lymphadenopathy. Numerous enlarged mediastinal lymph nodes, for example a pretracheal node which measures up to 2.7 x 2.3 cm (axia l image 50) and a subcarinal node measuring up to 3.6 x 2.9 cm (axial image 66 ). Left hilar lymphadenopathy measures up to 2.1 x 1.5cm. Mild multichamber ca rdiomegaly. Small pericardial effusion. Scattered atherosclerotic calcificatio ns involve the aorta, coronary arteries, and proximal great vessels. UPPE R ABDOMEN: No acute findings in the upper abdomen. BONES: No acute osseous injury. SOFT TISSUES: Unremarkable. IMPRESSION: 2.9 x 2.6 cm spicul ated left lower lobe pulmonary nodule is highly concerning for malignancy. Med iastinal and left hilar lymphadenopathy concerning for metastatic disease. Severe diffuse centrilobular and paraseptal emphysema. Findings of chronic p ulmonary fibrosis. Mucous/debris in the distal trachea and right bronchus i ntermedius may be related to aspiration. Signed by: Jaydon Salomon MD on 09/21/2019 4:49 PM Dictated By: JAYDON SALOMON MD 48 Transcribed By: IMELDA on 09/21/191648 COPY TO: CINDY PEREZ MD CHEST SINGLE (PORTABLE)2019-09-21 08:32:00 [place] [address] Patient Name: NAWAF STORM MR #: [id number] : 1940 Age/Sex: 79/M Req #: [id number] Adm Physician: CINDY PEREZ MD Ordered by: NILESH CONWAY MD Re port #: [id number] Location: [facility] Room/ Bed: [place] [address] Procedure: [id number] DX/CHEST SING LE (PORTABLE) Exam Date: 09/21/19 Exam Time: 519 REPORT STATUS: Signed EXAMINATION: CHEST SINGLE (PORTABLE) INDICATION: Shortness of breath COMPARIS ON: Chest radiograph 09/20/2019 FINDINGS: LINES/TUBES:EKG leads ove rlie the chest. LUNGS:The lungs are mildly hyperinflated. Mildly increasing bibasilar hazy opacities. PLEURA:No pleural effusion or pneumothorax. MEDIASTINUM:Cardiomediastinal silhouette is stably enlarged. BONES/SOFT TISSUES:No acute osseous injury. ABDOMEN:No free air under the diaphragm. IMPRESSION: Mildly increasing bibasilar hazy opacities may represent p neumonia in the proper clinical setting. Signed by: Jaydon Salomon MD on 09/20 8:34 AM Dictated By: JAYDON SALOMON MD 3 Transcribed By: IMELDA on 09/21/19 0834 COPY T O: NILESH CONWAY MD Blood leukocytes automated count (number/volume) 2019-09-21 04:08:00* Test Item Value Reference Range Interpretation Comments White Blood Count (test code = 6690-2) 9.72 4.8-10.8 [facility] erythrocytes automated count (number/volume)2019-09-21 04:08:00* Test Item Value Reference Range Interpretation Comments Red Blood Count (test code = 789-8) 4.93 4.3-5.7 [facility] WorthBlood hemoglobin measurement (moles/volume)2019-09-21 04:08:00* Test Item Value Reference Range Interpretation Comments Hemoglobin (test code = 92805-6) 14.6 14.0-18.0 [facility] WorthAutomated blood hematocrit (volume fraction)2019-09-21 04:08:00* Test Item Value Reference Range Interpretation Comments Hematocrit (test code = 4544-3) 46.6 38.2-49.6 [facility] WorthAutomated erythrocyte mean corpuscular xnxsfc8832-15-11 04:08:00* Test Item Value Reference Range Interpretation Comments Mean Corpuscular Volume (test code = 787-2) 94.5 81-99 [facility] WorthAutomated erythrocyte mean corpuscular hemoglobin (mass per erythrocyte)2019-09-21 04:08:00* Test Item Value Reference Range Interpretation Comments Mean Corpuscular Hemoglobin (test code = 785-6) 29.6 28-32 [facility] WorthAutcarolinas continuecare hospital at [facility] mountained erythrocyte mean corpuscular hemoglobin concentration measurement (mass/volume)2019-09-21 04:08:00* Test Item Value Reference Range Interpretation Comments Mean Corpuscular Hemoglobin Concent (test code = 786-4) 31.3 31-35 [facility] WorthRDW IlqQy-Mpa9610-63-06 04:08:00* Test Item Value Reference Range Interpretation Comments Red Cell Distribution Width (test code = 68790-1) 16.3 11.7 -14.4 [facility] WorthAutomated blood platelet count (count/volume)2019-09-21 04:08:00* Test Item Value Reference Range Interpretation Comments Platelet Count (test code = 777-3) 200 140-360 [facility] neutrophil count as percentage of total vktsihkbuf4659-95-87 04:08:00* Test Item Value Reference Range Interpretation Comments Neutrophils (%) (Auto) (test code = 02619-6) 64.8 38.7-80.0 [facility] lymphocyte count as percentage ot total csaladbjqr3053-61-19 04:08:00* Test Item Value Reference Range Interpretation Comments Lymphocytes (%) (Auto) (test code = 736-9) 21.4 18.0-39.1 [facility] WorthAutomated blood monocyte count as percentage of total mdalxivsmt3771-20-61 04:08:00* Test Item Value Reference Range Interpretation Comments Monocytes (%) (Auto) (test code = 5905-5) 12.4 4.4-11.3 [facility] WorthAutomated blood eosinophil count as percentage of total vrfotyrjzt3061-98-34 04:08:00* Test Item Value Reference Range Interpretation Comments Eosinophils (%) (Auto) (test code = 713-8) 0.6 0.0-6.0 [facility] WorthAutomated blood basophil count as percentage of total ujciflcmhv6959-52-50 04:08:00* Test Item Value Reference Range Interpretation Comments Basophils (%) (Auto) (test code = 706-2) 0.4 0.0-1.0 [facility] WorthFluoroscopic procedure less than one hour lnnymuhv6375-59-66 04:08:00* Test Item Value Reference Range Interpretation Comments IM GRANULOCYTES % (test code = IM GRANULOCYTES %) 0.4 0.0- 1.0 [facility] WorthAutomated blood neutrophil count 2019-09-21 04:08:00* Test Item Value Reference Range Interpretation Comments Neutrophils # (Auto) (test code = 751-8) 6.3 2.1-6.9 [facility] WorthBlood lymphocytes count (number/volume) 2019-09-21 04:08:00* Test Item Value Reference Range Interpretation Comments Lymphocytes # (Auto) (test code = 78753-7) 2.1 1.0-3.2 [facility] WorthBlood monocytes automated count (number/volume)2019-09-21 04:08:00* Test Item Value Reference Range Interpretation Comments Monocytes # (Auto) (test code = 742-7) 1.2 0.2-0.8 [facility] WorthAutomated blood eosinophil count 2019-09-21 04:08:00* Test Item Value Reference Range Interpretation Comments Eosinophils # (Auto) (test code = 711-2) 0.1 0.0-0.4 [facility] WorthAutomated blood basophil count (count/volume)2019-09-21 04:08:00* Test Item Value Reference Range Interpretation Comments Basophils # (Auto) (test code = 704-7) 0.0 0.0-0.1 [facility] WorthFluoroscopic procedure less than one hour covgnugz5231-70-03 04:08:00* Test Item Value Reference Range Interpretation Comments Absolute Immature Granulocyte (auto (ladi t code = Absolute Immature Granulocyte (auto) 0.04 0-0.1 [facility] sodium measurement (moles/volume)2019-09-21 04:08:00* Test Item Value Reference Range Interpretation Comments Sodium Level (test code = 2951-2) 139 136-145 [facility] plasma potassium measurement (moles/volume)2019-09-21 04:08:00* Test Item Value Reference Range Interpretation Comments Potassium Level (test code = 2823-3) 4.3 3.5-5.1 [facility] plasma chloride measurement (moles/volume)2019-09-21 04:08:00* Test Item Value Reference Range Interpretation Comments Chloride Level (test code = 2075-0) 107 98-107 [facility] or plasma carbon dioxide, total measurement (moles/volume)2019-09-21 04:08:00* Test Item Value Reference Range Interpretation Comments Carbon Dioxide Level (test code = 2028-9) 24 22-29 [facility]er[facility] or plasma anion ohk3124-90-09 04:08:00* Test Item Value Reference Range Interpretation Comments Anion Gap (test code = 46119-1) 12.3 8-16 [facility] plasma urea nitrogen measurement (mass/volume)2019-09-21 04:08:00* Test Item Value Reference Range Interpretation Comments Blood Urea Nitrogen (test code = 3094-0) 27 7-26 [facility] plasma creatinine measurement (mass/volume)2019-09-21 04:08:00* Test Item Value Reference Range Interpretation Comments Creatinine (test code = 2160-0) 0.97 0.72-1.25 [facility] or plasma urea nitrogen/creatinine mass jailu5207-50-91 04:08:00* Test Item Value Reference Range Interpretation Comments BUN/Creatinine Ratio (test code = 3097-3) 28 6-25 [facility] WorthEstimated glomerular filtration rate (GFR) sqbguubxpxuuj3366-75-33 04:08:00* Test Item Value Reference Range Interpretation Comments Estimat Glomerular Filtration Rate (test code = 733872089) > 60 >60 Ranges were taken from the National Kidney Disease Education Program and the [facility] Kidney Foundation literature.Reference ranges:60 or greater: Nqorod82-83 ( for 3 consecutive months): Chronic kidney disease 15 or less: Kidney failureB[facility] WorthGlucose xofomrefrzg1454-20-47 04:08:00* Test Item Value Reference Range Interpretation Comments Glucose Level (test code = NDL3874) 93 74-118 [facility]er[facility] or plasma calcium measurement (mass/volume)2019-09-21 04:08:00* Test Item Value Reference Range Interpretation Comments Calcium Level (test code = 02590-9) 8.1 8.4-10.2 [facility]er[facility] or plasma total bilirubin measurement (mass/volume)2019-09-21 04:08:00* Test Item Value Reference Range Interpretation Comments Total Bilirubin (test code = 1975-2) 1.1 0.2-1.2 [facility] WorthFluoroscopic procedure less than one hour quhckpuw6106-23-04 04:08:00* Test Item Value Reference Range Interpretation Comments Aspartate Amino Transf (AST/SGOT) (test code = Aspartate Amino Transf (AST/SGOT)) 26 5-34 [facility] Hospitalerum or plasma alanine aminotransferase measurement (enzymatic activity/volume)2019-09-21 04:08:00* Test Item Value Reference Range Interpretation Comments Alanine Aminotransferase (ALT/SGPT) (test code = 1742-6) 27 0-55 [facility]er[facility] plasma protein measurement (mass/volume)2019-09-21 04:08:00* Test Item Value Reference Range Interpretation Comments Total Protein (test code = 2885-2) 5.7 6.5-8.1 [facility]er[facility] or plasma albumin measurement (mass/volume)2019-09-21 04:08:00* Test Item Value Reference Range Interpretation Comments Albumin (test code = 1751-7) 3.1 3.5-5.0 [facility] WorthPlasma globulin measurement (mass/volume) 2019-09-21 04:08:00* Test Item Value Reference Range Interpretation Comments Globulin (test code = 35604-6) 2.6 2.3-3.5 [facility]er[facility] or plasma albumin/globulin mass hptpu5420-36-09 04:08:00* Test Item Value Reference Range Interpretation Comments Albumin/Globulin Ratio (test code = 1759-0) 1.2 0.8-2.0 [facility] Hospitaler[facility] or plasma alkaline phosphatase measurement (enzymatic activity/volume)2019-09-21 04:08:00* Test Item Value Reference Range Interpretation Comments Alkaline Phosphatase (test code = 6768-6) 117 40-150 [facility] Worth[facility]LE ([facility])2019-09-20 11:18:00 [place] [address] Patient Name: NAWAF STORM MR #: [id number] : 1940 Age/Sex: 79/M Req #: [id number] Adm Physician: Ordered by: NILESH CONWAY MD Report #: [id number] Location: ER Room/Bed: Procedure: [id number] DX/CHEST SING LE (PORTABLE) Exam Date: 07/05/20 Exam Time: 1030 REPORT STATUS: Signed Examination: Single AP view of the chest. COMPARISON: Portable chest 09/19/2019 EDUARDO CATION: Shortness of breath, COVID IMPRESSION: Limited exam, as the cos tophrenic angles are not included in the image. 1. Lines and Tubes: Non e 2. Lungs are well-inflated. Patchy bibasilar predominantly interstitial o pacities, which are essentially unchanged. No definite consolidation, however, exam is limited, as described above. 3. Stable enlarged cardiac silhouette. Pulmonary vasculature is normal. 4. No acute bony abnormalities. Hiral d by: Dr. Erasmo Fairchild M.D. on 09/20/2019 11:22 AM Dictated By: JAYNE FAIRCHILD MD [address] scribed By: IMELDA on 09/20/19 1122 COPY TO: NILESH CONWAY MD Blood leukocytes automated count (number/volume)2019-09-20 08:13:00* Test Item Value Reference Range Interpretation Comments White Blood Count (test code = 6690-2) 10.07 4.8-10.8 [facility] WorthBlood erythrocytes automated count (number/volume)2019-09-20 08:13:00* Test Item Value Reference Range Interpretation Comments Red Blood Count (test code = 789-8) 5.10 4.3-5.7 [facility] WorthBlood hemoglobin measurement (moles/volume)2019-09-20 08:13:00* Test Item Value Reference Range Interpretation Comments Hemoglobin (test code = 63877-2) 14.9 14.0-18.0 [facility] WorthAutomated blood hematocrit (volume fraction)2019-09-20 08:13:00* Test Item Value Reference Range Interpretation Comments Hematocrit (test code = 4544-3) 47.9 38.2-49.6 [facility] WorthAutomated erythrocyte mean corpuscular oqxjip2675-96-48 08:13:00* Test Item Value Reference Range Interpretation Comments Mean Corpuscular Volume (test code = 787-2) 93.9 81-99 [facility] WorthAutomated erythrocyte mean corpuscular hemoglobin (mass per erythrocyte)2019-09-20 08:13:00* Test Item Value Reference Range Interpretation Comments Mean Corpuscular Hemoglobin (test code = 785-6) 29.2 28-32 [facility] WorthAutomated erythrocyte mean corpuscular hemoglobin concentration measurement (mass/volume)2019-09-20 08:13:00* Test Item Value Reference Range Interpretation Comments Mean Corpuscular Hemoglobin Concent (test code = 786-4) 31.1 31-35 [facility] WorthRDW EgpBo-[id number] 08:13:00* Test Item Value Reference Range Interpretation Comments Red Cell Distribution Width (test code = 07943-6) 16.6 11.7 -14.4 [facility] WorthAutomated blood platelet count (count/volume)2019-09-20 08:13:00* Test Item Value Reference Range Interpretation Comments Platelet Count (test code = 777-3) 243 140-360 [facility] WorthAutomated blood segmented neutrophil count as percentage of total gvpexhjxfa9276-35-85 08:13:00* Test Item Value Reference Range Interpretation Comments Neutrophils (%) (Auto) (test code = 13690-5) 67.7 38.7-80.0 [facility] WorthAutcarolinas continuecare [facility]ained blood lymphocyte count as percentage ot total hwzfkbxzsl5035-96-12 08:13:00* Test Item Value Reference Range Interpretation Comments Lymphocytes (%) (Auto) (test code = 736-9) 21.0 18.0-39.1 [facility] WorthAutomated blood monocyte count as percentage of total wbuyicnaip4911-26-04 08:13:00* Test Item Value Reference Range Interpretation Comments Monocytes (%) (Auto) (test code = 5905-5) 10.0 4.4-11.3 [facility] WorthAutomated blood eosinophil count as percentage of total vthjagpgmo9981-70-82 08:13:00* Test Item Value Reference Range Interpretation Comments Eosinophils (%) (Auto) (test code = 713-8) 0.4 0.0-6.0 [facility] WorthAutomated blood basophil count as percentage of total ismepuhmkr1069-84-43 08:13:00* Test Item Value Reference Range Interpretation Comments Basophils (%) (Auto) (test code = 706-2) 0.5 0.0-1.0 [facility] WorthFluoroscopic procedure less than one hour wtbkhyal0364-57-15 08:13:00* Test Item Value Reference Range Interpretation Comments IM GRANULOCYTES % (test code = IM GRANULOCYTES %) 0.4 0.0- 1.0 [facility] WorthAutomated blood neutrophil count 2019-09-20 08:13:00* Test Item Value Reference Range Interpretation Comments Neutrophils # (Auto) (test code = 751-8) 6.8 2.1-6.9 [facility] WorthBlood lymphocytes count (number/volume) 2019-09-20 08:13:00* Test Item Value Reference Range Interpretation Comments Lymphocytes # (Auto) (test code = 25137-5) 2.1 1.0-3.2 [facility] WorthBlood monocytes automated count (number/volume)2019-09-20 08:13:00* Test Item Value Reference Range Interpretation Comments Monocytes # (Auto) (test code = 742-7) 1.0 0.2-0.8 [facility] WorthAutomated blood eosinophil count 2019-09-20 08:13:00* Test Item Value Reference Range Interpretation Comments Eosinophils # (Auto) (test code = 711-2) 0.0 0.0-0.4 [facility] WorthAutomated blood basophil count (count/volume)2019-09-20 08:13:00* Test Item Value Reference Range Interpretation Comments Basophils # (Auto) (test code = 704-7) 0.1 0.0-0.1 [facility] WorthFluoroscopic procedure less than one hour [id number] 08:13:00* Test Item Value Reference Range Interpretation Comments Absolute Immature Granulocyte (auto (ladi t code = Absolute Immature Granulocyte (auto) 0.04 0-0.1 [facility] (moles/volume)2019-09-20 08:13:00* Test Item Value Reference Range Interpretation Comments Sodium Level (test code = 2951-2) 141 136-145 [facility] potassium measurement (moles/volume)2019-09-20 08:13:00* Test Item Value Reference Range Interpretation Comments Potassium Level (test code = 2823-3) 4.3 3.5-5.1 [facility] chloride measurement (moles/volume)2019-09-20 08:13:00* Test Item Value Reference Range Interpretation Comments Chloride Level (test code = 2075-0) 104 98-107 [facility] carbon dioxide, total measurement (moles/volume)2019-09-20 08:13:00* Test Item Value Reference Range Interpretation Comments Carbon Dioxide Level (test code = 2028-9) 29 22-29 [facility] anion law4637-47-64 08:13:00* Test Item Value Reference Range Interpretation Comments Anion Gap (test code = 16197-2) 12.3 8-16 [facility] urea nitrogen measurement (mass/volume)2019-09-20 08:13:00* Test Item Value Reference Range Interpretation Comments Blood Urea Nitrogen (test code = 3094-0) 21 7-26 [facility] creatinine measurement (mass/volume)2019-09-20 08:13:00* Test Item Value Reference Range Interpretation Comments Creatinine (test code = 2160-0) 1.05 0.72-1.25 [facility] urea nitrogen/creatinine mass pbfwe7096-43-11 08:13:00* Test Item Value Reference Range Interpretation Comments BUN/Creatinine Ratio (test code = 3097-3) 20 6-25 [facility] WorthEstimated glomerular filtration rate (GFR) iprkqslnmbyxf2093-91-94 08:13:00* Test Item Value Reference Range Interpretation Comments Estimat Glomerular Filtration Rate (test code = 498442389) > 60 >60 Ranges were taken from the National Kidney Disease Education Program and the [facility] literature.Reference ranges:60 or greater: Qxuuue69-67 ( for 3 consecutive months): Chronic kidney disease 15 or less: Kidney failureB[facility] WorthGlucose ojpeslfocyi5683-27-96 08:13:00* Test Item Value Reference Range Interpretation Comments Glucose Level (test code = UZA1035) 110 74-118 [facility] calcium measurement (mass/volume)2019-09-20 08:13:00* Test Item Value Reference Range Interpretation Comments Calcium Level (test code = 09560-7) 8.7 8.4-10.2 [facility] total bilirubin measurement (mass/volume)2019-09-20 08:13:00* Test Item Value Reference Range Interpretation Comments Total Bilirubin (test code = 1975-2) 1.4 0.2-1.2 [facility] WorthFluoroscopic procedure less than one hour qtqpjpsa0007-24-41 08:13:00* Test Item Value Reference Range Interpretation Comments Aspartate Amino Transf (AST/SGOT) (test code = Aspartate Amino Transf (AST/SGOT)) 20 5-34 [facility] alanine aminotransferase measurement (enzymatic activity/volume)2019-09-20 08:13:00* Test Item Value Reference Range Interpretation Comments Alanine Aminotransferase (ALT/SGPT) (test code = 1742-6) 22 0-55 [facility] protein measurement (mass/volume)2019-09-20 08:13:00* Test Item Value Reference Range Interpretation Comments Total Protein (test code = 2885-2) 6.2 6.5-8.1 [facility] albumin measurement (mass/volume)2019-09-20 08:13:00* Test Item Value Reference Range Interpretation Comments Albumin (test code = 1751-7) 3.3 3.5-5.0 [facility] WorthPlasma globulin measurement (mass/volume) 2019-09-20 08:13:00* Test Item Value Reference Range Interpretation Comments Globulin (test code = 18872-9) 2.9 2.3-3.5 [facility] albumin/globulin mass vqzpt5231-95-12 08:13:00* Test Item Value Reference Range Interpretation Comments Albumin/Globulin Ratio (test code = 1759-0) 1.1 0.8-2.0 [facility] plasma alkaline phosphatase measurement (enzymatic activity/volume)2019-09-20 08:13:00* Test Item Value Reference Range Interpretation Comments Alkaline Phosphatase (test code = 6768-6) 126 40-150 [facility]-jToz4836-36-93 08:13:00* Test Item Value Reference Range Interpretation Comments B-Type Natriuretic Peptide (test code = 82592-2) 255.9 0-100 [facility] creatine kinase measurement (enzymatic activity/volume)2019-09-20 08:13:00* Test Item Value Reference Range Interpretation Comments Creatine Kinase (test code = 2157-6) 38 30-200 [facility] plasma creatine kinase MB measurement (mass/volume)2019-09-20 08:13:00* Test Item Value Reference Range Interpretation Comments Creatine Kinase MB (test code = 21134-4) 1.60 0-5.0 [facility] WorthTroponin I measurement by highly sensitive enzyme ggxuaqzhwic2546-86-88 08:13:00* Test Item Value Reference Range Interpretation Comments Troponin I (test code = 35677-9) 0.002 0-0.300 [facility]-hMef6418-73-26 08:13:00* Test Item Value Reference Range Interpretation Comments B-Type Natriuretic Peptide (test code = 12414-8) 255.9 0-100 [facility] creatine kinase measurement (enzymatic activity/volume)2019-09-20 08:13:00* Test Item Value Reference Range Interpretation Comments Creatine Kinase (test code = 2157-6) 38 30-200 [facility] plasma creatine kinase MB measurement (mass/volume)2019-09-20 08:13:00* Test Item Value Reference Range Interpretation Comments Creatine Kinase MB (test code = 19235-8) 1.60 0-5.0 [facility] WorthTroponin I measurement by highly sensitive enzyme smpvdlhqoxb1415-84-67 08:13:00* Test Item Value Reference Range Interpretation Comments Troponin I (test code = 31783-9) 0.002 0-0.300 [facility] SINGLE (PORTABLE)2019-09-19 18:47:00 [facility] [address] [address] Patient Name: NAWAF STORM MR #: [id number] : 1940 Age/Sex: 79/M Req #: [id number] Adm Physician: Ordered by: NILESH CONWAY MD Report #: [id number] Location: ER Room/Bed: Procedure: [id number] DX/CHEST SING LE (PORTABLE) Exam Date: 09/19/19 Exam Time: 1829 REPORT STATUS: Signed EXAMINATION: CHEST SINGLE (PORTABLE) INDICATION: Y COUGH, SOB, HYPOXI A [id number] COMPARISON: None FINDINGS: AP view TUBES and LINES: None. LUNGS: Lungs are well inflated. Diffuse tiffanie ateral lower lobe predominant reticular consolidations. PLEURA: No pleural effusion or pneumothorax. HEART AND MEDIASTINUM: The cardiac silh ouette is mildly enlarged. BONES AND SOFT TISSUES: No acute osseous lesi on. Soft tissues are unremarkable. UPPER ABDOMEN: No free air under the diaphragm. IMPRESSION: Radiographic findings consistent with pulmona ry edema with or without superimposed viral pneumonia. Recommend follow-u p chest radiograph after diuresis. Signed by: Dr. Priscilla Jonas M.D. on 09/19/2019 6:50 PM Dictated By: PRISCILLA CUENCA MD Elec tronically Signed By: PRISCILLA CUENCA MD on 09/19/191849 Transcribed B y: IMELDA on 09/19/191849 COPY TO: NILESH CONWAY MD Prothrombin time (PT) in platelet poor plasma by coagulation [id number] 18:10:00* Test Item Value Reference Range Interpretation Comments Prothrombin Time (test code = 5902-2) 22.3 11.9-14.5 [facility] WorthINR in Platelet poor plasma by Coagulation vslls9511-14-12 18:10:00* Test Item Value Reference Range Interpretation Comments Prothromb Time International Ratio (test code = 6301-6) 1.81 Oral Anticoagulant Therapy INR Values:1. Low Intensity Therapy 1.5 - 2.02 . Moderate Intensity Therapy 2.0 - 3.03. High Intensity Therapy(1) 2.5 - 3. 54. High Intensity Therapy(2) 3.0 - 4.05. Panic Value INR > 5.0 [facility] WorthActivated partial thromboplastin time (aPTT) in platelet poor plasma by coagulation foshm9558-82-83 18:10:00* Test Item Value Reference Range Interpretation Comments Activated Partial Thromboplast Time (test code = 84332-5) 39.1 23.8-35.5 [facility] WorthFluoroscopic procedure less than one hour banqpghu4619-77-71 18:10:00* Test Item Value Reference Range Interpretation Comments Lactic Acid Level (test code = Lactic Acid Level) 1.3 0.5- 2.0 [facility] WorthProthrombin time (PT) in platelet poor plasma by coagulation olaef4397-59-03 18:10:00* Test Item Value Reference Range Interpretation Comments Prothrombin Time (test code = 5902-2) 22.3 11.9-14.5 [facility] WorthINR in Platelet poor plasma by Coagulation wscbf4790-05-64 18:10:00* Test Item Value Reference Range Interpretation Comments Prothromb Time International Ratio (test code = 6301-6) 1.81 Oral Anticoagulant Therapy INR Values:1. Low Intensity Therapy 1.5 - 2.02 . Moderate Intensity Therapy 2.0 - 3.03. High Intensity Therapy(1) 2.5 - 3. 54. High Intensity Therapy(2) 3.0 - 4.05. Panic Value INR > 5.0 [facility] WorthActivated partial thromboplastin time (aPTT) in platelet poor plasma by coagulation brgky9695-94-61 18:10:00* Test Item Value Reference Range Interpretation Comments Activated Partial Thromboplast Time (test code = 63775-6) 39.1 23.8-35.5 [facility] WorthFluoroscopic procedure less than one hour srfqszln1427-88-84 18:10:00* Test Item Value Reference Range Interpretation Comments Lactic Acid Level (test code = Lactic Acid Level) 1.3 0.5- 2.0 [facility] WorthBlood vlxkxtg8340-78-83 18:10:00* Test Item Value Reference Range Interpretation Comments Blood Culture (test code = 16919022) NO GROWTH AFTER 72 HOURS [facility]
[2019-10-26] MEDS ORDERED: SODIUM CHLORIDE FLUSH 10 ML SYR INJ PRN (01:30)
--- NOTE | 2019-10-26 01:30 | NUR ---
AMBULATED PT DOWN THE [place]. PT HAS AN UPRIGHT AND STEADY GAIT. 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 PT HAS EVEN AND LABORED BREATHING. ER MD AND THIS RN AT BEDSIDE WITH PT. PT SITTING UP ON SIDE OF BED. WILL CONTINUE TO MONITOR.
--- OUTSIDE RECORDS SUMMARY | 2019-10-26 01:42 | XMS REPORT | Continuity of Care Document ---
Author Author [facility] t Organization [facility] Address 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 Name Role Phone Saúl CUNNINGHAM PCP Erma MILES Attphys Unavailable PEREZ, CINDY Attphys Unavailable PEREZ, CINDY Admphys Unavailable Payers Payer Name Policy Type Policy Number Effective Date Expiration Date Arcadio Glover [id number] 2019 00:00:00 [facility] Cdc Review Covid19 [id number] [facility] Problems Condition Name Condition Details Condition Category Status Onset Date Resolution Date Last Treatment Date Treating Clinician Comments Source Congestive heart failure Problem Active [facility] Epistaxis Problem Active [facility] Hypoxia Problem Active [facility] Allergies, Adverse Reactions, Alerts This patient has no known allergies or adverse reactions. Social History Social Habit Start Date Stop Date Quantity Comments Source Sex Assigned At 1940 00:00:00 1940 00:00:00 Male [facility] Medications Ordered Medication Name Filled Medication Name Start Date Stop Da te Current Medication? Ordering Clinician Indication Dosage Frequency Signature (SIG) Comments Components Source Amiodarone Hcl Amiodarone Hcl Yes 200 Daily [facility] Ascorbic Acid (Vitamin C) 500 Mg TABLET Ascorbic Acid (Vitam in C) 500 Mg TABLET Yes 500 Twice A Day [facility] Azithromycin (Z-Jt) 250 Mg TABLET Azithromycin (Z-Jt) 250 Mg TABLET Yes 250 Daily [facility] Carvedilol Carvedilol Yes 6.25 Twice A Day [facility] Chertusin Chertusin Yes 5 Every 4 Hours as nee ded for Cough [facility] Dexamethasone (Decadron) 4 Mg TABLET Dexamethasone (Decadron) 4 Mg TABLET Yes 4 Daily [facility] Eloquis Eloquis Yes 5 Twice A Day [facility] Furosemide (Lasix) 20 Mg TABLET Furosemide (Lasix) 20 Mg TABLET Yes 20 Daily At 1700 [facility] Furosemide Furosemide Yes 40 Daily [facility] Zinc Sulfate Zinc Sulfate Yes 220 Daily [facility] Eliquis Eliquis 2016-01-10 00:00:00 No 5 Daily [facility] Vital Signs Vital Name Observation Time Observation Value Comments Source Body Temperature 2019-09-23 12:25:00 97.4 [degF] [facility] Weight 2019-09-23 02:27:00 169.31 [lb_av] [facility] BMI (Body Mass Index) 2019-09-23 02:27:00 24.3 kg/m2 [facility] Weight 2019-09-19 17:22:00 170 [lb_av] [facility] BMI (Body Mass Index) 2019-09-19 17:22:00 24.4 kg/m2 [facility] Weight 2019-09-01 04:16:00 170 [lb_av] [facility] BMI (Body Mass Index) 2019-09-01 04:16:00 24.4 kg/m2 [facility] Weight 2019-08-26 23:04:00 180 [lb_av] [facility] BMI (Body Mass Index) 2019-08-26 23:04:00 25.8 kg/m2 [facility] Procedures Procedure Date / Time Performed Performing Clinician [facility] e Computed tomography of chest without contrast 2019-09-21 00:00:0 0 [facility] EMERGENCY DEPT VISIT 2019-08-26 00:00:00 [facility] Plan of Care Planned Activity Planned Date Details Comments Source Instructions COVID-19: 06/01/2019 [facility] Instructions Congestive Heart Failure [facility] Instructions Heart Healthy Diet [facility] Instructions Infection Control [facility] Encounters Start Date/Time End Date/Time Encounter Type Admission Type [facility] Care Department Encounter ID Source 2019-09-21 08:46:00 2019-09-23 13:18:00 Discharged Inpatient 1 CINDY PEREZ [facility] [id number] [facility] 2019-09-01 04:02:00 2019-09-01 06:02:00 Departed Emergency Room [facility] [id number] [facility] 2019-08-26 22:39:00 2019-08-27 00:26:00 Departed Emergency Room [facility] [id number] [facility] Results Test Description Test Time Test Comments Results Result Comments Source CHEST SINGLE (PORTABLE) 2019-10-26 01:01:00 [facility] [address] [place] [address] Patient Name: NAWAF STORM MR #: [id number] : 1940 Age/Sex: 79/M Req #: [id number] Adm Physician: Ordered by: BREE MILES MD Report #: [id number] Location: ER Room/Bed: Procedure: [id number] DX/CHEST SINGLE (PORTABLE) Exam Date: Exam Time: [...] from individuals suspected of COVID-19 by their [facility] provider. This test has not been Food [...] under 564(g) of the ACT.Testing performed [address] [id number] 16:38:00 [facility] [address] [address] Patient Name: NAWAF STORM MR #: [id number] : 1940 Age/Sex: 79/M Req #: [id number] Adm Physician: CINDY PEREZ MD Ordered by: CINDY PEREZ MD Report #: [id number] Location: [facility] Room/Bed: [place] [address] Procedure: [id number] CT/CT CHEST WO Exam Date: 09/21/19 Exam [...] CINDY PEREZ MD CHEST SINGLE (PORTABLE)2019-09-21 08:32:00 [place] [address] Patient Name: NAWAF STORM MR #: [id number] : 1940 Age/Sex: 79/M Req #: [id number] Adm Physician: CINDY PEREZ MD Ordered by: NILESH CONWAY MD Re port #: [id number] Location: [facility] Room/ Bed: [place] [address] Procedure: [id number] DX/CHEST SING LE (PORTABLE) Exam Date: 09/21/19 [...] Count (test code = 6690-2) 9.72 4.8-10.8 [facility] count (number/volume)2019-09-21 04:08:00* Test Item Value Reference Range Interpretation Comments Red Blood Count (test code = 789-8) 4.93 4.3-5.7 [facility] measurement (moles/volume)2019-09-21 04:08:00* Test Item Value Reference Range Interpretation Comments Hemoglobin (test code = 54182-8) 14.6 14.0-18.0 [facility] HospitalAutomated blood hematocrit (volume fraction)2019-09-21 04:08:00* Test Item Value Reference Range Interpretation Comments Hematocrit (test code = 4544-3) 46.6 38.2-49.6 [facility] HospitalAutomated erythrocyte mean corpuscular fhsdcj0845-50-03 04:08:00* Test Item Value Reference Range Interpretation Comments Mean Corpuscular Volume (test code = 787-2) 94.5 81-99 [facility] HospitalAutomated erythrocyte mean corpuscular hemoglobin (mass per erythrocyte)2019-09-21 04:08:00* Test Item Value Reference Range Interpretation Comments Mean Corpuscular Hemoglobin (test code = 785-6) 29.6 28-32 [facility] HospitalAutmission hospitaled erythrocyte mean corpuscular hemoglobin concentration measurement (mass/volume)2019-09-21 04:08:00* Test Item Value Reference Range Interpretation Comments Mean Corpuscular Hemoglobin Concent (test code = 786-4) 31.3 31-35 [facility] HospitalRDW ViaVr-Zxd0845-55-06 04:08:00* Test Item Value Reference Range Interpretation Comments Red Cell Distribution Width (test code = 83166-8) 16.3 11.7 -14.4 [facility] HospitalAutomated blood platelet count (count/volume)2019-09-21 04:08:00* Test Item Value Reference Range Interpretation Comments Platelet Count (test code = 777-3) 200 140-360 [facility] neutrophil count as percentage of total hhvdmhsbek0314-36-87 04:08:00* Test Item Value Reference Range Interpretation Comments Neutrophils (%) (Auto) (test code = 41126-2) 64.8 38.7-80.0 [facility] count as percentage ot total zqjxpvnntf6078-17-16 04:08:00* Test Item Value Reference Range Interpretation Comments Lymphocytes (%) (Auto) (test code = 736-9) 21.4 18.0-39.1 [facility] HospitalAutomated blood monocyte count as percentage of total ybvcautthg3186-39-38 04:08:00* Test Item Value Reference Range Interpretation Comments Monocytes (%) (Auto) (test code = 5905-5) 12.4 4.4-11.3 [facility] HospitalAutomated blood eosinophil count as percentage of total yqzgxxmvgj9838-39-32 04:08:00* Test Item Value Reference Range Interpretation Comments Eosinophils (%) (Auto) (test code = 713-8) 0.6 0.0-6.0 [facility] HospitalAutomated blood basophil count as percentage of total xcojshfstr5060-83-53 04:08:00* Test Item Value Reference Range Interpretation Comments Basophils (%) (Auto) (test code = 706-2) 0.4 0.0-1.0 [facility] HospitalFluoroscopic procedure less than one hour rrmxykjr6379-70-39 04:08:00* Test Item Value Reference Range Interpretation Comments IM GRANULOCYTES % (test code = IM GRANULOCYTES %) 0.4 0.0- 1.0 [facility] HospitalAutomated blood neutrophil count 2019-09-21 04:08:00* Test Item Value Reference Range Interpretation Comments Neutrophils # (Auto) (test code = 751-8) 6.3 2.1-6.9 [facility] HospitalBlood lymphocytes count (number/volume) 2019-09-21 04:08:00* Test Item Value Reference Range Interpretation Comments Lymphocytes # (Auto) (test code = 73356-9) 2.1 1.0-3.2 [facility] monocytes automated count (number/volume)2019-09-21 04:08:00* Test Item Value Reference Range Interpretation Comments Monocytes # (Auto) (test code = 742-7) 1.2 0.2-0.8 [facility] HospitalAutomated blood eosinophil count 2019-09-21 04:08:00* Test Item Value Reference Range Interpretation Comments Eosinophils # (Auto) (test code = 711-2) 0.1 0.0-0.4 [facility] HospitalAutomated blood basophil count (count/volume)2019-09-21 04:08:00* Test Item Value Reference Range Interpretation Comments Basophils # (Auto) (test code = 704-7) 0.0 0.0-0.1 [facility] HospitalFluoroscopic procedure less than one hour wdlycnwm8633-96-22 04:08:00* Test Item Value Reference Range Interpretation Comments Absolute Immature Granulocyte (auto (ladi t code = Absolute Immature Granulocyte (auto) 0.04 0-0.1 [facility] sodium measurement (moles/volume)2019-09-21 04:08:00* Test Item Value Reference Range Interpretation Comments Sodium Level (test code = 2951-2) 139 136-145 [facility] potassium measurement (moles/volume)2019-09-21 04:08:00* Test Item Value Reference Range Interpretation Comments Potassium Level (test code = 2823-3) 4.3 3.5-5.1 [facility] chloride measurement (moles/volume)2019-09-21 04:08:00* Test Item Value Reference Range Interpretation Comments Chloride Level (test code = 2075-0) 107 98-107 [facility]er[facility] or plasma carbon dioxide, total measurement (moles/volume)2019-09-21 04:08:00* Test Item Value Reference Range Interpretation Comments Carbon Dioxide Level (test code = 2028-9) 24 22-29 [facility] Hospitaler[facility] or plasma anion zmw1458-23-01 04:08:00* Test Item Value Reference Range Interpretation Comments Anion Gap (test code = 31401-5) 12.3 8-16 [facility] urea nitrogen measurement (mass/volume)2019-09-21 04:08:00* Test Item Value Reference Range Interpretation Comments Blood Urea Nitrogen (test code = 3094-0) 27 7-26 [facility] plasma creatinine measurement (mass/volume)2019-09-21 04:08:00* Test Item Value Reference Range Interpretation Comments Creatinine (test code = 2160-0) 0.97 0.72-1.25 [facility] urea nitrogen/creatinine mass wegzv4958-00-21 04:08:00* Test Item Value Reference Range Interpretation Comments BUN/Creatinine Ratio (test code = 3097-3) 28 6-25 [facility] HospitalEstimated glomerular filtration rate (GFR) gzzuazqcyvjip8098-75-50 04:08:00* Test Item Value Reference Range Interpretation Comments Estimat Glomerular Filtration Rate (test code = 973678595) > 60 >60 Ranges were taken from the National Kidney Disease Education Program and the [facility] [employer] literature.Reference ranges:60 or greater: Zcmcfu37-52 ( for 3 consecutive months): Chronic kidney disease 15 or less: Kidney failureMayhill HospitalGlucose iemehmorcnj9106-92-05 04:08:00* Test Item Value Reference Range Interpretation Comments Glucose Level (test code = LOE9205) 93 74-118 [facility] or plasma calcium measurement (mass/volume)2019-09-21 04:08:00* Test Item Value Reference Range Interpretation Comments Calcium Level (test code = 81589-3) 8.1 8.4-10.2 [facility] or plasma total bilirubin measurement (mass/volume)2019-09-21 04:08:00* Test Item Value Reference Range Interpretation Comments Total Bilirubin (test code = 1975-2) 1.1 0.2-1.2 [facility] HospitalFluoroscopic procedure less than one hour lqsambea1189-17-57 04:08:00* Test Item Value Reference Range Interpretation Comments Aspartate Amino Transf (AST/SGOT) (test code = Aspartate Amino Transf (AST/SGOT)) 26 5-34 [facility] Hospitaler[facility] or plasma alanine aminotransferase measurement (enzymatic activity/volume)2019-09-21 04:08:00* Test Item Value Reference Range Interpretation Comments Alanine Aminotransferase (ALT/SGPT) (test code = 1742-6) 27 0-55 [facility] Hospitaler[facility] or plasma protein measurement (mass/volume)2019-09-21 04:08:00* Test Item Value Reference Range Interpretation Comments Total Protein (test code = 2885-2) 5.7 6.5-8.1 [facility] Hospitaler[facility] or plasma albumin measurement (mass/volume)2019-09-21 04:08:00* Test Item Value Reference Range Interpretation Comments Albumin (test code = 1751-7) 3.1 3.5-5.0 [facility] HospitalPlasma globulin measurement (mass/volume) 2019-09-21 04:08:00* Test Item Value Reference Range Interpretation Comments Globulin (test code = 58002-2) 2.6 2.3-3.5 [facility] or plasma albumin/globulin mass dyoha6466-50-06 04:08:00* Test Item Value Reference Range Interpretation Comments Albumin/Globulin Ratio (test code = 1759-0) 1.2 0.8-2.0 [facility] Hospital[facility] or plasma alkaline phosphatase measurement (enzymatic activity/volume)2019-09-21 04:08:00* Test Item Value Reference Range Interpretation Comments Alkaline Phosphatase (test code = 6768-6) 117 40-150 [facility] HospitalCHEST [facility]INGLE (PORTABLE)2019-09-20 11:18:00 [place] [address] Patient Name: NAWAF STORM MR #: [id number] : 1940 Age/Sex: 79/M Req #: [id number] Adm Physician: Ordered by: NILESH CONWAY MD Report #: [id number] Location: ER Room/Bed: Procedure: [id number] DX/CHEST SING LE (PORTABLE) Exam Date: 07/05/20 [...] Count (test code = 6690-2) 10.07 4.8-10.8 [facility] HospitalBlood erythrocytes automated count (number/volume)2019-09-20 08:13:00* Test Item Value Reference Range Interpretation Comments Red Blood Count (test code = 789-8) 5.10 4.3-5.7 [facility] HospitalBlood hemoglobin measurement (moles/volume)2019-09-20 08:13:00* Test Item Value Reference Range Interpretation Comments Hemoglobin (test code = 86508-3) 14.9 14.0-18.0 [facility] HospitalAutomated blood hematocrit (volume fraction)2019-09-20 08:13:00* Test Item Value Reference Range Interpretation Comments Hematocrit (test code = 4544-3) 47.9 38.2-49.6 [facility] HospitalAutomated erythrocyte mean corpuscular zbqrax2559-09-46 08:13:00* Test Item Value Reference Range Interpretation Comments Mean Corpuscular Volume (test code = 787-2) 93.9 81-99 [facility] HospitalAutomated erythrocyte mean corpuscular hemoglobin (mass per erythrocyte)2019-09-20 08:13:00* Test Item Value Reference Range Interpretation Comments Mean Corpuscular Hemoglobin (test code = 785-6) 29.2 28-32 [facility] HospitalAutomated erythrocyte mean corpuscular hemoglobin concentration measurement (mass/volume)2019-09-20 08:13:00* Test Item Value Reference Range Interpretation Comments Mean Corpuscular Hemoglobin Concent (test code = 786-4) 31.1 31-35 [facility] HospitalRDW EzeUt-Eic5221-01-05 08:13:00* Test Item Value Reference Range Interpretation Comments Red Cell Distribution Width (test code = 00490-0) 16.6 11.7 -14.4 [facility] HospitalAutomated blood platelet count (count/volume)2019-09-20 08:13:00* Test Item Value Reference Range Interpretation Comments Platelet Count (test code = 777-3) 243 140-360 [facility] HospitalAutomated blood segmented neutrophil count as percentage of total xljifhycig1011-99-06 08:13:00* Test Item Value Reference Range Interpretation Comments Neutrophils (%) (Auto) (test code = 56858-7) 67.7 38.7-80.0 [facility] HospitalAutmission hospitaled blood lymphocyte count as percentage ot total bwhtqaiuvj3039-70-70 08:13:00* Test Item Value Reference Range Interpretation Comments Lymphocytes (%) (Auto) (test code = 736-9) 21.0 18.0-39.1 [facility] HospitalAutomated blood monocyte count as percentage of total pynmfkhuqs7758-70-11 08:13:00* Test Item Value Reference Range Interpretation Comments Monocytes (%) (Auto) (test code = 5905-5) 10.0 4.4-11.3 [facility] HospitalAutomated blood eosinophil count as percentage of total lwmujevgof6826-27-39 08:13:00* Test Item Value Reference Range Interpretation Comments Eosinophils (%) (Auto) (test code = 713-8) 0.4 0.0-6.0 [facility] HospitalAutomated blood basophil count as percentage of total sqkfwulnjg5939-90-31 08:13:00* Test Item Value Reference Range Interpretation Comments Basophils (%) (Auto) (test code = 706-2) 0.5 0.0-1.0 [facility] HospitalFluoroscopic procedure less than one hour xogckzqw9628-04-35 08:13:00* Test Item Value Reference Range Interpretation Comments IM GRANULOCYTES % (test code = IM GRANULOCYTES %) 0.4 0.0- 1.0 [facility] HospitalAutomated blood neutrophil count 2019-09-20 08:13:00* Test Item Value Reference Range Interpretation Comments Neutrophils # (Auto) (test code = 751-8) 6.8 2.1-6.9 [facility] HospitalBlood lymphocytes count (number/volume) 2019-09-20 08:13:00* Test Item Value Reference Range Interpretation Comments Lymphocytes # (Auto) (test code = 53092-3) 2.1 1.0-3.2 [facility] HospitalBlood monocytes automated count (number/volume)2019-09-20 08:13:00* Test Item Value Reference Range Interpretation Comments Monocytes # (Auto) (test code = 742-7) 1.0 0.2-0.8 [facility] HospitalAutomated blood eosinophil count 2019-09-20 08:13:00* Test Item Value Reference Range Interpretation Comments Eosinophils # (Auto) (test code = 711-2) 0.0 0.0-0.4 [facility] HospitalAutomated blood basophil count (count/volume)2019-09-20 08:13:00* Test Item Value Reference Range Interpretation Comments Basophils # (Auto) (test code = 704-7) 0.1 0.0-0.1 [facility] HospitalFluoroscopic procedure less than one hour tvhdrjzl5737-17-31 08:13:00* Test Item Value Reference Range Interpretation Comments Absolute Immature Granulocyte (auto (ladi t code = Absolute Immature Granulocyte (auto) 0.04 0-0.1 [facility]er[facility] or plasma sodium measurement (moles/volume)2019-09-20 08:13:00* Test Item Value Reference Range Interpretation Comments Sodium Level (test code = 2951-2) 141 136-145 [facility]er[facility] plasma potassium measurement (moles/volume)2019-09-20 08:13:00* Test Item Value Reference Range Interpretation Comments Potassium Level (test code = 2823-3) 4.3 3.5-5.1 [facility] Hospitaler[facility] or plasma chloride measurement (moles/volume)2019-09-20 08:13:00* Test Item Value Reference Range Interpretation Comments Chloride Level (test code = 2075-0) 104 98-107 [facility] Hospitaler[facility] or plasma carbon dioxide, total measurement (moles/volume)2019-09-20 08:13:00* Test Item Value Reference Range Interpretation Comments Carbon Dioxide Level (test code = 2028-9) 29 22-29 [facility] Hospitaler[facility] or plasma anion nnk3945-50-29 08:13:00* Test Item Value Reference Range Interpretation Comments Anion Gap (test code = 56829-5) 12.3 8-16 [facility] urea nitrogen measurement (mass/volume)2019-09-20 08:13:00* Test Item Value Reference Range Interpretation Comments Blood Urea Nitrogen (test code = 3094-0) 21 7-26 [facility] Hospitaler[facility] or plasma creatinine measurement (mass/volume)2019-09-20 08:13:00* Test Item Value Reference Range Interpretation Comments Creatinine (test code = 2160-0) 1.05 0.72-1.25 [facility]er[facility] or plasma urea nitrogen/creatinine mass bggxc8515-59-08 08:13:00* Test Item Value Reference Range Interpretation Comments BUN/Creatinine Ratio (test code = 3097-3) 20 6-25 [facility] HospitalEstimated glomerular filtration rate (GFR) ydsihimwzycbt8347-28-09 08:13:00* Test Item Value Reference Range Interpretation Comments Estimat Glomerular Filtration Rate (test code = 945566202) > 60 >60 Ranges were taken from the National Kidney Disease Education Program and the [facility] literature.Reference ranges:60 or greater: Enrcxa00-04 ( for 3 consecutive months): Chronic kidney disease 15 or less: Kidney failureMayhill HospitalGlucose jnihaurmlzc1037-81-92 08:13:00* Test Item Value Reference Range Interpretation Comments Glucose Level (test code = FHZ0549) 110 74-118 [facility]er[facility] or plasma calcium measurement (mass/volume)2019-09-20 08:13:00* Test Item Value Reference Range Interpretation Comments Calcium Level (test code = 15476-9) 8.7 8.4-10.2 [facility] Hospitaler[facility] or plasma total bilirubin measurement (mass/volume)2019-09-20 08:13:00* Test Item Value Reference Range Interpretation Comments Total Bilirubin (test code = 1975-2) 1.4 0.2-1.2 [facility] HospitalFluoroscopic procedure less than one hour mghvsgvg4522-26-64 08:13:00* Test Item Value Reference Range Interpretation Comments Aspartate Amino Transf (AST/SGOT) (test code = Aspartate Amino Transf (AST/SGOT)) 20 5-34 [facility] Hospitaler[facility] or plasma alanine aminotransferase measurement (enzymatic activity/volume)2019-09-20 08:13:00* Test Item Value Reference Range Interpretation Comments Alanine Aminotransferase (ALT/SGPT) (test code = 1742-6) 22 0-55 [facility] Hospitaler[facility] or plasma protein measurement (mass/volume)2019-09-20 08:13:00* Test Item Value Reference Range Interpretation Comments Total Protein (test code = 2885-2) 6.2 6.5-8.1 [facility] Hospitaler[facility] or plasma albumin measurement (mass/volume)2019-09-20 08:13:00* Test Item Value Reference Range Interpretation Comments Albumin (test code = 1751-7) 3.3 3.5-5.0 [facility] HospitalPlasma globulin measurement (mass/volume) 2019-09-20 08:13:00* Test Item Value Reference Range Interpretation Comments Globulin (test code = 01757-4) 2.9 2.3-3.5 [facility]er[facility] or plasma albumin/globulin mass fpalo8736-22-14 08:13:00* Test Item Value Reference Range Interpretation Comments Albumin/Globulin Ratio (test code = 1759-0) 1.1 0.8-2.0 [facility] Hospitaler[facility] or plasma alkaline phosphatase measurement (enzymatic activity/volume)2019-09-20 08:13:00* Test Item Value Reference Range Interpretation Comments Alkaline Phosphatase (test code = 6768-6) 126 40-150 [facility]-zMoi9708-47-95 08:13:00* Test Item Value Reference Range Interpretation Comments B-Type Natriuretic Peptide (test code = 22523-9) 255.9 0-100 [facility] Hospitaler[facility] or plasma creatine kinase measurement (enzymatic activity/volume)2019-09-20 08:13:00* Test Item Value Reference Range Interpretation Comments Creatine Kinase (test code = 2157-6) 38 30-200 [facility] Hospitalerum or plasma creatine kinase MB measurement (mass/volume)2019-09-20 08:13:00* Test Item Value Reference Range Interpretation Comments Creatine Kinase MB (test code = 67719-4) 1.60 0-5.0 [facility] HospitalTroponin I measurement by highly sensitive enzyme hpqxlzogxxk8126-88-31 08:13:00* Test Item Value Reference Range Interpretation Comments Troponin I (test code = 27898-5) 0.002 0-0.300 [facility]-mOgs4315-72-52 08:13:00* Test Item Value Reference Range Interpretation Comments B-Type Natriuretic Peptide (test code = 21170-7) 255.9 0-100 [facility]er[facility] or plasma creatine kinase measurement (enzymatic activity/volume)2019-09-20 08:13:00* Test Item Value Reference Range Interpretation Comments Creatine Kinase (test code = 2157-6) 38 30-200 [facility] Hospitaler[facility] or plasma creatine kinase MB measurement (mass/volume)2019-09-20 08:13:00* Test Item Value Reference Range Interpretation Comments Creatine Kinase MB (test code = 50565-4) 1.60 0-5.0 [facility] HospitalTroponin I measurement by highly sensitive enzyme cgivusnyfgp1638-58-95 08:13:00* Test Item Value Reference Range Interpretation Comments Troponin I (test code = 71140-7) 0.002 0-0.300 [facility] SINGLE (PORTABLE)2019-09-19 18:47:00 [facility] [address] [address] Patient Name: NAWAF STORM MR #: [id number] : 1940 Age/Sex: 79/M Req #: [id number] Adm Physician: Ordered by: NILESH CONWAY MD Report #: [id number] Location: ER Room/Bed: Procedure: [id number] DX/CHEST SING LE (PORTABLE) Exam Date: 09/19/19 [...] (PT) in platelet poor plasma by coagulation [id number] 18:10:00* Test Item Value Reference Range Interpretation Comments Prothrombin Time (test code = 5902-2) 22.3 11.9-14.5 [facility]agulation [id number] 18:10:00* Test Item Value Reference Range Interpretation Comments Prothromb Time International Ratio (test code = 6301-6) 1.81 Oral Anticoagulant Therapy INR Values:1. Low Intensity Therapy 1.5 - 2.02 . Moderate Intensity Therapy 2.0 - 3.03. High Intensity Therapy(1) 2.5 - 3. 54. High Intensity Therapy(2) 3.0 - 4.05. Panic Value INR > 5.0 [facility]oplast[facility] (aPTT) in platelet poor plasma by coagulation [id number] 18:10:00* Test Item Value Reference Range Interpretation Comments Activated Partial Thromboplast Time (test code = 06762-6) 39.1 23.8-35.5 [facility] procedure less than one hour [id number] 18:10:00* Test Item Value Reference Range Interpretation Comments Lactic Acid Level (test code = Lactic Acid Level) 1.3 0.5- 2.0 [facility] (PT) in platelet poor plasma by coagulation [id number] 18:10:00* Test Item Value Reference Range Interpretation Comments Prothrombin Time (test code = 5902-2) 22.3 11.9-14.5 [facility] Platelet poor plasma by Coagulation [id number] 18:10:00* Test Item Value Reference Range Interpretation Comments Prothromb Time International Ratio (test code = 6301-6) 1.81 Oral Anticoagulant Therapy INR Values:1. Low Intensity Therapy 1.5 - 2.02 . Moderate Intensity Therapy 2.0 - 3.03. High Intensity Therapy(1) 2.5 - 3. 54. High Intensity Therapy(2) 3.0 - 4.05. Panic Value INR > 5.0 [facility]oplast[facility] (aPTT) in platelet poor plasma by coagulation [id number] 18:10:00* Test Item Value Reference Range Interpretation Comments Activated Partial Thromboplast Time (test code = 25629-8) 39.1 23.8-35.5 [facility]Flu[facility] less than one hour [id number] 18:10:00* Test Item Value Reference Range Interpretation Comments Lactic Acid Level (test code = Lactic Acid Level) 1.3 0.5- 2.0 [facility] [id number] 18:10:00* Test Item Value Reference Range Interpretation Comments Blood Culture (test code = 85178949) NO GROWTH AFTER 72 HOURS [facility]
[2019-10-26] MEDS ORDERED: DIGOXIN INJ 0.25 MG/ML 2 ML AMP IV ONE (01:45)
[2019-10-26] MEDS: METHYLPREDNISOLONE SOD SUCC 40 MG/ML VIAL 1ML IV SCH ×3 (01:48→18:05)
[2019-10-26] MEDS: AZITHROMYCIN 500MG/NS 250 ML 250 ML IV SCH (01:48)
[2019-10-26] MEDS ORDERED: ELIQUIS5 MG PO (02:16)
--- NOTE | 2019-10-26 02:30 | NUR ---
Patient arrived to the floor from ED to Rm 297 (negative pressure room) as a PUI for COVID. Pt alert and oriented x3. Ambulatory with standby assist. Diagnoses is SOB and COPD. On telemetry monitoring running A-fib (chronic). Pt states he feels fine at this time. SOB happens when he lays flat in bed according to patient. O2 sat ranges from 92-95% on room air. Call barton within reach. Will monitor pt closely.
[2019-10-26] MEDS: ALBUTEROL/IPRATROPIUM 3 ML NEB NEB SCH ×6 (03:25→23:00)
--- NOTE | 2019-10-26 06:30 | NUR ---
Spoke with Dr. Vito Marsh to notify of new consult for patient re: SOB and COPD. aware and said "thank you."
--- NOTE | 2019-10-26 07:00 | NUR ---
received bedside report. pt is alert resting in bed, oxygen at 5L per NC, RN reduced oxygen to 3L. pt is tolerating well, o2 sat at 95-96%. call light within reach and instructed pt to call for help
[2019-10-26 09:25] LABS: CREATINE KINASE MB 1.8 ng/mL (0-5.0)
[2019-10-26] MEDS ORDERED: LEVALBUTEROL HCL SOLN NEBU 1.25 MG/3 ML NEB INH PRN (10:15)
[2019-10-26] MEDS ORDERED: ONDANSETRON HCL 4 MG ORAL DISINTEGRATING TAB PO PRN (10:15)
[2019-10-26] MEDS ORDERED: ONDANSETRON HCL INJ 2MG/ML 2ML 2 MG/ML VIAL IV PRN (10:15)
[2019-10-26] MEDS ORDERED: BENZONATATE 100 MG CAP PO PRN (10:15)
[2019-10-26] MEDS ORDERED: ACETAMINOPHEN 325 MG TAB PO PRN (10:15)
[2019-10-26] MEDS: AMIODARONE HCL 200 MG TAB PO SCH (10:45)
[2019-10-26] MEDS: CARVEDILOL 3.125 MG TAB PO SCH ×2 (10:45→18:05)
[2019-10-26] MEDS: FAMOTIDINE 20 MG TAB PO SCH ×2 (10:45→18:04)
[2019-10-26] MEDS: AMOXICILLIN/CLAVULANATE K 875 MG TAB PO SCH ×2 (10:45→20:41)
[2019-10-26] MEDS: APIXABAN 5 MG TABLET PO SCH ×2 (10:45→18:05)
--- NOTE | 2019-10-26 14:15 | NUR ---
ORDER RECEIVED FOR HOME O2 EVAL. CALL TO PT. PT STATES HE HAS NOT HAD O2 AT HOME. PROVIDED CHOICE: [facility] PT CHOSE [facility]. DEMOGRAPHICS VERIFIED. REFERRAL FAXED TO [facility]. @ OFF: [phone] / FAX: [phone].
[2019-10-26] MEDS: BENZONATATE 100 MG CAP PO SCH ×2 (18:04→20:41)
[2019-10-26] MEDS: ASCORBIC ACID 500 MG TAB PO SCH (18:05)
[2019-10-26 18:07] LABS: CREATINE KINASE MB 1.9 ng/mL (0-5.0)
[2019-10-27 00:22] VITALS: BP 103/77
[2019-10-27] MEDS: AZITHROMYCIN 500MG/NS 250 ML 250 ML IV SCH (00:57)
[2019-10-27] MEDS: METHYLPREDNISOLONE SOD SUCC 40 MG/ML VIAL 1ML IV SCH ×2 (00:57→06:39)
[2019-10-27] MEDS: ALBUTEROL/IPRATROPIUM 3 ML NEB NEB SCH (03:00)
[2019-10-27 05:32] VITALS: BP 93/58
[2019-10-27 05:47] LABS: BASOPHILS % 0.2 % (0.0-1.0); HEMATOCRIT 45.3 % (38.2-49.6); HEMOGLOBIN 14.3 g/dL (14.0-18.0); LYMPHOCYTES # (AUTO) 1.2 (1.0-3.2); LYMPHOCYTES % 9.4 % (18.0-39.1); MEAN CORPUSCULAR HEMOGLOBIN 30.1 pg (28-32); MEAN CORPUSCULAR HGB CONC 31.6 g/dL (31-35); MEAN CORPUSCULAR VOLUME 95.4 fL (81-99); MONOCYTES # (AUTO) 0.4 (0.2-0.8); MONOCYTES % 3.2 % (4.4-11.3); NEUTROPHILS # (AUTO) 11.2 (2.1-6.9); NEUTROPHILS % 86.4 % (38.7-80.0); PLATELET COUNT 172 x10e3/uL (140-360); RED BLOOD COUNT 4.75 x10e6/uL (4.3-5.7); RED CELL DISTRIBUTION WIDTH 16.1 % (11.7-14.4)
[2019-10-27 06:13] LABS: ANION GAP 13.2 mmol/L (8-16); BLOOD UREA NITROGEN 27 mg/dL (7-26); BUN/CREATININE RATIO 26 (6-25); CALCIUM 8.6 mg/dL (8.4-10.2); CARBON DIOXIDE 26 mmol/L (22-29); CHLORIDE 108 mmol/L (98-107); CREATININE, SERUM 1.05 mg/dL (0.72-1.25); EST GLOMERULAR FILTRATION RATE > 60 ML/MIN (60-); GLUCOSE 130 mg/dL (74-118); POTASSIUM 5.2 mmol/L (3.5-5.1); SODIUM 142 mmol/L (136-145)
[2019-10-27 08:05] VITALS: BP 109/59
[2019-10-27] MEDS: FAMOTIDINE 20 MG TAB PO SCH (08:22)
[2019-10-27] MEDS: ASCORBIC ACID 500 MG TAB PO SCH (08:22)
[2019-10-27] MEDS: AMIODARONE HCL 200 MG TAB PO SCH (08:22)
[2019-10-27] MEDS: CARVEDILOL 3.125 MG TAB PO SCH (08:22)
[2019-10-27] MEDS: APIXABAN 5 MG TABLET PO SCH (08:22)
[2019-10-27] MEDS: BENZONATATE 100 MG CAP PO SCH (08:22)
[2019-10-27] MEDS: AMOXICILLIN/CLAVULANATE K 875 MG TAB PO SCH (08:22)
--- NOTE | 2019-10-27 08:35 | Diagnostic Imaging Report ---
EXAMINATION: CHEST SINGLE (PORTABLE) INDICATION: COPD COMPARISON: Chest radiograph 10/26/2019, chest CT 09/21/2019 FINDINGS: LINES/TUBES:EKG leads overlie the chest. LUNGS:The lungs are hyperinflated with emphysematous changes. Increased bilateral lower lung and peripheral predominant interstitial opacities consistent with pulmonary fibrosis seen on prior chest CT of 09/21/2019. Spiculated left lower lobe nodule seen on prior CT is beyond the resolution of his radiograph. PLEURA:No pleural effusion or pneumothorax. MEDIASTINUM:The cardiomediastinal silhouette appears unchanged in size and shape. BONES/SOFT TISSUES:No acute osseous injury. ABDOMEN:No free air under the diaphragm. IMPRESSION: Hyperinflated emphysematous lungs and findings of chronic interstitial fibrosis. Spiculated left lower lobe nodule better evaluated on prior CT. Signed by: Jacqueline Eastman MD on 10/27/2019 8:32 AM
--- NOTE | 2019-10-27 11:38 | Discharge Summary ---
PRIMARY CARE PHYSICIAN: Jordin Tucker DO FINAL DIAGNOSES: 1. Acute exacerbation of chronic obstructive pulmonary disease. 2. Oxygen dependent. 3. Baseline atrial fibrillation with episodic volume overload. SUMMARY: The patient is an 79 years male smoker, came in with acute exacerbation of COPD. His COVID-19 nasal swab PCR is negative. The patient is stable. He was treating for COPD. He was given IV Solu-Medrol. White cell count was normal on admission, slightly elevated Solu-Medrol. He does have acute exacerbation of COPD from his long history of smoking. Chest x-ray shown that the patient has hyperinflated emphysematous lung and finding of chronic interstitial fibrosis. He also has spiculated left lower lobe lung mass. The patient is pending for a biopsy done his . The patient is otherwise stable. He is very well aware of the spiculated left lower lobe nodule that need to be biopsy. There is slightly that malignancy. Discussed the patient at length. I have arranged for the patient to have oxygen for going home. He will resume his home medication. He will take Medrol Dosepak for his COPD. ProAir HFA two puff q.4 hours as needed for shortness of breath and Anoro Ellipta one inhaled daily. Azithromycin 250 mg daily for 4 days. Tessalon Perles as needed for cough. The patient is otherwise stable. He is instructed to follow up with his lung doctor and his primary care physician within a week. MD SAULO Wright/ASHIA /[id number]
[2019-10-28] MEDS ORDERED: AZITHROMYCIN 250 MG TAB PO SCH (02:00)
== END 2019-10-27 10:12 | disposition home or self-care (01) ==
LOC: ER 23:34 → ERHOLD 10-26 01:38 → MED/SURG3 10-26 02:24
PROVIDERS: ADMIT Internal Medicine; ATTEND Internal Medicine
DX: J44.1 Chronic obstructive pulmonary disease with (acute) exacerbation (principal); I48.19 Other persistent atrial fibrillation; Z99.81 Dependence on supplemental oxygen; R91.1 Solitary pulmonary nodule; F17.200 Nicotine dependence, unspecified, uncomplicated
CPT/HCPCS: 36415 ×3; 71045 ×2; 80048; 80053; 82550 ×2; 82553 ×2; 83880; 84484 ×2; 85025 ×2; 85610; 85730; 93005; 94640 ×2; 99284; G0378 ×2; J0456 ×2; J1160; J2920 ×2; U0002